=== PATIENT | male | born 1980 | race Caucasian/White ===

== ENCOUNTER → 2019-07-22 | Outpatient (CLI) | payer BC, OTHER ==
[~2019-07-22] MED LIST: AXIRON TOP; CLON0.2T PO; DIPH25CA58 PO; GABA800T5 PO; INSU3INS2 SUBCUT; LAMO25TA31 PO; METF10007 PO; METH-38 PO; NABU500T PO; OMEP40CA45 PO; ONDA4TAB12 PO; PROM25TA10 PO; QUET50TA79 PO; TRAZ150T49 PO; VENL75TA PO
--- NOTE | 2019-07-22 22:14 | PAIN ---
DATE OF SERVICE: 07/22/2019 INITIAL CONSULTATION FOR PAIN CLINIC CHIEF COMPLAINT: Low back and right greater than left lower extremity pain. HISTORY OF PRESENT ILLNESS: This is a 38-year-old male who presents with history of pain in the low back into the lower extremities, more on the right than the left, but present bilaterally, mostly in the posterior gluteus, posterior thigh, lateral thigh on the right and into the medial and lateral lower leg on the right but only into the thigh on the left. The patient reports this has been going on for about 8-1/2 months or so. No specific injury or action he is aware of. He has had this in the past several years ago, about 5-6 years ago, and did well after some interventional treatment at outside facility. The patient reports the pain is returning now over the past 8-1/2 months in the low back. He was wearing a boot on his left foot, he had an infection and wore this for several weeks. He feels that it "shifted" in his hips and back due to length difference with wearing a boot on his left foot. He has had back pain since that time. The boot has been off now for several weeks, but the pain is remaining. The patient reports it is worse with walking, standing, changing positions, sitting for more than 10-15 minutes. The patient reports it is a constant pain, it is becoming sharp, it is stabbing, throbbing, shooting in the lower extremities, again worse on the right than the left, radiating, aching, cramping and burning in the low back. The patient reports it awakens him from sleep about 2-3 times, can affect his bowel or bladder control, but no loss of continence. It does affect his ability to walk fairly significantly, especially when his right leg is aching and it fatigues more easily than the left leg, but they both have fatigue with walking. The patient has had physical therapy as early as June of this year, last month. He is still doing the stretching and strengthening exercises from that. Also, has chiropractic treatment is ongoing and exercises doing on his own. He has tried hydrocodone as well as nabumetone and zxbf-esr-joggvir Advil as well, which decreases the pain, but only by a moderate extent. The patient rates his disability rating from 0-10, 10 being the worst, is a 7 with family and home responsibility, sexual behavior and self-care, 9 with recreation and social activity, 10 with occupational activity and 2 with life support activities. The patient did have MRI scan of the lumbar spine showing mild degenerative disk disease at L3-L4, L4-L5 and L5-S1 with preserved disk height at L4-L5, but degeneration resulting in moderate right foraminal stenosis with decreased fat signal surrounding the right L4 nerve root. No direct nerve root displacement with mild narrowing of the lateral recess at L4-L5 and at L5-S1 with a subtle posterior central less than 5 mm protrusion at L5-S1 with focal disruption of the annulus as well as some flattening of subligamentous disk material in the location at L5-S1 also. PAST MEDICAL HISTORY: Significant for type 2 diabetes, obstructive sleep apnea, uses CPAP, gastroesophageal reflux, arthritis, depression, benign prostatic hypertrophy, psoriasis, also migraine headaches, and Klinefelter syndrome. PAST SURGICAL HISTORY: The patient reports surgeries include bilateral shoulder surgery for tendon repairs, right elbow surgery and wisdom teeth extraction. CURRENT MEDICATIONS: Include omeprazole, promethazine, ondansetron, lamotrigine, venlafaxine, gabapentin, metformin, Axiron, nabumetone, Soliqua, hydrocodone, methocarbamol, Benadryl, Omnicef. ALLERGIES: The patient has no known drug allergies. FAMILY HISTORY: Significant for Parkinson's disease, heart disease, suicides, heart attack, stroke. SOCIAL HISTORY: The patient drinks about 2 alcoholic drinks a month on average and generally very rare. Does not smoke, but is around secondhand smoke for many years. Does not use any illegal, illicit or recreational drugs. He is , lives with his spouse. Lives locally in [place], [place]. REVIEW OF SYSTEMS: The patient's review of systems is positive for those items mentioned in history of present illness. All systems reviewed and otherwise negative. It is complete, full and well documented on the patient's chart. PHYSICAL EXAMINATION: VITAL SIGNS: The patient's blood pressure is 134/93, pulse 91, respirations 18, temperature 97.9 degrees Fahrenheit, height is 6 feet 7 inches, weight 385 pounds. GENERAL: The patient is awake, alert, oriented, appropriate, very pleasant demeanor. HEENT: Shows normocephalic, atraumatic. Extraocular movements are intact and symmetrical. Oral cavity: Mucous membranes moist and pink. Dentition is intact. NECK: Shows anterior throat supple without palpable lymphadenopathy noted. Swallow reflex symmetrical. CHEST: Shows normal on inspection. Breath sounds are clear bilaterally. HEART: Shows S1, S2 clear. No murmurs auscultated. ABDOMEN: Soft, nontender, nondistended. No palpable organomegaly is noted. There is no rebound or guarding demonstrated. BACK: Shows spine grossly in the midline. Normal appearing thoracic kyphosis and some mild lumbar lordotic curvature flattening. Lumbar paraspinous muscle shows symmetrical on inspection, on palpation shows some moderate tenderness diffusely throughout the upper, middle and lower distribution of paraspinous muscles bilaterally as well as into the lower thoracic paraspinous musculature, but symmetrical without evidence of atrophy, hypertrophy, no trigger points, no radiation of pain, no tenderness over the spinous processes, sacrum or sacroiliac regions. No tenderness with rotation which is greater than 10 degrees right and left as well as extension 10 degrees, forward flexion 45 degrees without significant pain reported. EXTREMITIES: The patient's lower extremities show deep tendon reflexes at 2+ in the patellar, 1+ tendo-calcaneus tendons. Motor exam is strong with 5/5 dorsiflexion, extension, quadriceps and hamstring flexion symmetrical. Peripheral pulses are 1+ posterior tibia. No peripheral edema is noted. Lower extremities are warm and dry to touch, equal in color and appearance. Straight leg raise noted to be negative for reproduction of radicular symptoms on the left, but very mildly positive about 40 degrees to 45 degrees of the right leg raise with decreased pain with knee flexion on the right side. Gaenslen's and Juliano's maneuvers are grossly negative bilaterally. The patient is able to stand, stand on his toes without difficulty or loss of balance, walks with a normal appearing gait for short distance in the office today, not using any assistive devices to ambulate. SKIN: Shows warm and dry, good turgor. No edema. No sores, rashes or bruising throughout. Does have some psoriasis on the elbows bilaterally. IMPRESSION: 1. This is a 38-year-old male with 8-1/2 month history of increasing pain, low back, bilateral lower extremities in a radicular fashion, more on the right than the left, following a L4-L5 dermatomal distribution and consistent with L4-L5 radiculopathy bilaterally, but worse on the right. 2. MRI scan of lumbar spine as noted. 3. Arthritis. 4. Type 2 diabetes. 5. Psoriasis. PLAN: Options were discussed with the patient including conservative medical management, physical therapies, interventional techniques. He would like to pursue interventional techniques. He has done well with these in the past. He has been doing physical therapy since last month and still doing exercises on his own with only minimal decrease in pain. We discussed a lumbar epidural steroid injection using description as well as anatomical models to describe the procedure. The patient will wait for preauthorization with insurance provider. In the meantime, will keep doing the exercises at home and will continue to take his anti-inflammatories. The patient did ask for hydrocodone. We will give him 5 mg hydrocodone 20 tablets with instructions and side effects to be aware of as one-time prescription. The patient will follow up as scheduled for lumbar epidural steroid injection at L4-L5 level, translaminar approach. ESTHELA MAYBERRY MD DR: JOHANA/meena JOB#: [id number] / [id number]
== END | disposition home or self-care (01) ==
LOC: PNCL 12:46
PROVIDERS: ATTEND Anesthesiology
DX: M51.17 Intervertebral disc disorders with radiculopathy, lumbosacral region (principal); M48.07 Spinal stenosis, lumbosacral region; M19.90 Unspecified osteoarthritis, unspecified site; E11.9 Type 2 diabetes mellitus without complications; L40.9 Psoriasis, unspecified; K21.9 Gastro-esophageal reflux disease without esophagitis; F32.9 Major depressive disorder, single episode, unspecified
CPT/HCPCS: G0463

== ENCOUNTER → 2019-08-05 | Outpatient (CLI) | payer OTHER ==
[~2019-08-05] MED LIST changes: +IOHEXOL 180 MG/ML 10 ML VIAL. ONE; +methylPREDNISolone ACETATE 40 MG/ML VIAL. ONE; +methylPREDNISolone ACETATE 80 MG/ML VIAL. ONE
--- NOTE | 2019-08-05 21:03 | PAIN ---
DATE OF SERVICE: 08/05/2019 PROGRESS NOTE FOR PAIN CLINIC DIAGNOSES: Lumbar radiculopathy with lumbar degenerative disk disease. HISTORY OF PRESENT ILLNESS: The patient is a 38-year-old male who returns for followup status post initial evaluation and preauthorization for lumbar epidural steroid injection. The patient reports still significant pain in the low back into the bilateral lower extremities, right greater than left. The patient reports it is worse with walking, standing, changing positions, better with sitting or lying down, does awaken him from sleep, however, occasionally, but not every night. The patient reports it is a 9 on a scale of 10 at its worst, 8 on average, 6 at its least and is an 8 today. The patient reports no new motor or sensory deficits. He describes the pain as aching, sharp, tight, shooting, burning and stabbing in the low back and becoming more constant and severe, radiating to the lower extremities, again worse on the right side. PHYSICAL EXAMINATION: VITAL SIGNS: The patient's blood pressure is 138/92, pulse 83, respirations 16, temperature 97.7 degrees Fahrenheit, height is 6 feet 7 inches, weight is 386 pounds. GENERAL: The patient is awake, alert, oriented, appropriate, very pleasant demeanor. HEENT: Head shows normocephalic, atraumatic. Extraocular movements are intact and symmetrical. Oral cavity: Mucous membranes moist and pink. Dentition is intact. NECK: Shows anterior throat supple without palpable lymphadenopathy noted. Swallow reflex symmetrical. CHEST: Shows normal on inspection. Breath sounds are clear to auscultation bilaterally. HEART: Shows S1, S2 clear. No murmurs auscultated. ABDOMEN: Soft, nontender, nondistended. No palpable organomegaly is noted. No rebound or guarding demonstrated. BACK: Shows spine grossly in the midline. Normal appearing thoracic kyphosis and lumbar lordotic curvature slightly flattened. Lumbar paraspinous muscle shows symmetrical on inspection, with palpation shows some moderate tenderness diffusely bilaterally, but only diffusely without significant radiation. EXTREMITIES: The patient's lower extremities show deep tendon reflexes at 2+ in the patellar, 1+ tendo-calcaneus tendons. Motor exam is strong with 5/5 dorsiflexion, extension and quadriceps and hamstring at 5/5 and 4/5 bilaterally. Peripheral pulses are 1+ posterior tibia. No peripheral edema is noted. Options were discussed with the patient. The patient's old chart was reviewed as his current medication regimen updated. Current review of systems updated today as well. We will proceed with a lumbar epidural steroid injection today with fluoroscopic guidance. Risks were again discussed including, but not limited to bleeding, infection, possibility of epidural hematoma, subsequent neurological compromise, dural puncture, headaches, spinal cord and/or nerve damage, side effects of steroid medication and poor results regarding pain control. The patient understands and wished to proceed. The patient will return to clinic in approximately 2 weeks for followup. She was counseled on return appointment, activity level and side effects to be aware of. DIAGNOSIS: Lumbar radiculopathy with lumbar degenerative disk disease. PROCEDURE: Lumbar epidural steroid injection, translaminar approach L4-L5 level using C-arm fluoroscopic guidance under sterile prep and drape using local anesthetic. MEDICATION INJECTED: A total of 120 mg Depo-Medrol plus 10 mL of preservative-free normal saline and 2 mL of contrast. CONDITION AT DISCHARGE: Stable. The patient tolerated the procedure well, had no complications. ESTHELA MAYBERRY MD DR: JOHANA/meena JOB#: [id number] / [id number]
== END ==
LOC: PNCL 12:58
PROVIDERS: ATTEND Anesthesiology
DX: M51.16 Intervertebral disc disorders with radiculopathy, lumbar region (principal)
CPT/HCPCS: 62323; J1030; J1040; Q9965

== ENCOUNTER 2020-11-18 15:10 | Inpatient (IN) | payer OTHER ==
[~2020-11-18] VITALS: Ht 200.7 cm; Wt 168.3 kg
[~2020-11-18 15:10] MED LIST changes: -CHOL10004 PO; -DAPT350V IV; -DIPH25TA24 PO; -DOXY100C2 PO; -EMPA25TA PO; -FURO80TA3 PO; -GADOTERATE 7.5 MMOL/15ML VIAL. IVP ONE; -HYDR2TAB31 PO; -HYDR4TAB PO; -INSU100I27 SQ; -INSU100I39 SQ; -LACT1CAP19 PO; -LAMO200T6 PO; -METF750T39 PO; -ONDA8TAB15 PO; -PANT40TA77 PO; -PIPE3.3734 IV; -POTA20TA84 PO; -QUET50TA5 PO; -RIVA15TA PO; -TEMA30CA PO; -TEST200V3 IM; -VENL150C6 PO; -VENL50TA PO
[2020-11-18 15:30] VITALS: BP 129/72
--- NOTE | 2020-11-18 15:58 | PDOC1 ---
History and Physical Date of Admission Date of Admission DATE: 11/18/20 TIME: 15:57 Identification/Chief Complaint Chief Complaint ulcer to his left lateral foot approximately 3 weeks ago, now mri pos osteomyelitis// overlying soft tissue ulcer measuring 1.8 x 1.6 cm, extending to the bone.neuropathy of left foot, patient usually denies painful symptoms, now has a deep aching pain in foot History of Present Illness History of Present Illness worsening ulcer to his left lateral foot approximately 3 weeks ago, now mri pos osteomyelitis// overlying soft tissue ulcer measuring 1.8 x 1.6 cm, extending to the bone due to .neuropathy of left foot, patient usually denies painful symptoms now has a deep aching pain in foot MRI resulted 11/18 revealed osteomyelitis of the base of the fifth metatarsal Patient states approximately 1 week ago he began to notice malodorous drainage. Patient was admitted to [facility] and was treated for left lower extremity cellulitis with IV vancomycin. 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 , now unemployed plan admit IV ANTIBIOTICS BLOOD CULTURES /ID CONSULT Emperic iv antibiotics wound care consult home meds Arterial doppler both legs A1C ACCUCHECKS Past Medical History Past Medical History sleep apnea STATES he developed diabetes afer an episode of pancreatitis a few years ago Cardiovascular: HTN Pulmonary: No pertinent hx Endocrine: Diabetes Family History Family History: High Cholestrol, Hypertension Social History Smoke: No ALCOHOL: none Drugs: None Current Medications Current Medications Active Scripts Active Reported Clonidine Hcl 0.2 Mg Tablet 1 Tab PO QHS Trazodone Hcl 150 Mg Tablet 1 Tab PO QHS 30 Days Quetiapine Fumarate ER (Quetiapine Fumarate) 50 Mg Tab.er.24h 50 Mg PO HS Benadryl (Diphenhydramine Hcl) 25 Mg Capsule 1 Cap PO QHS 30 Days Robaxin-750 (Methocarbamol) 750 Mg Tablet 500 Mg PO QID Soliqua 100 Unit-33 Mcg/ml Pen (Insulin Glargine/Lixisenatide) 3 Ml Insuln.pen 20 Ml SUBCUT HS [axiron] 30 Mg TOP DAILY Nabumetone 500 Mg Tablet 1 Tab PO BID Metformin Hcl 1,000 Mg Tablet 1,000 Mg PO BIDWMEALS Gabapentin 800 Mg Tablet 800 Mg PO QID Venlafaxine Hcl 75 Mg Tablet 150 Mg PO DAILY Lamotrigine 25 Mg Tab.er.24 25 Mg PO TID Ondansetron Odt (Ondansetron) 4 Mg Tab.rapdis 4 Mg PO TID PRN Promethazine Hcl 25 Mg Tablet 1 Tab PO DAILY Omeprazole 40 Mg Capsule.dr 40 Mg PO BID Allergies Allergies: Coded Allergies: No Known Drug Allergies (Unverified , 11/18/20) ROS Review of System 14 pt ros otherwise neg General: YES: Chills, Fatigue PSYCHOLOGICAL ROS: No: Anxiety, Behavioral Disorder, Concentration difficultie, Decreased libido, Depression, Disorientation, Hallucinations, Hostility, Irritablity, Memory difficulties, Mood Swings, Obsessive thoughts, Physical abuse, Sexual abuse, Sleep disturbances, Suicidal ideation, Other Eyes: No Blurry vision, No Decreased vision, No Double vision, No Dry eyes, No Excessive tearing, No Eye Pain, No Itchy Eyes, No Loss of vision, No Photophobia, No Scotomata, No Uses contacts, No Uses glasses, No Other HEENT: No: Heacaches, Visual Changes, Hearing change, Nasal congestion, Nasal discharge, Oral lesions, Sinus pain, Sore Throat, Epistaxis, Sneezing, Snoring, Tinnitus, Vertigo, Vocal changes, Other ALLERGY AND IMMUNOLOGY: No: Hives, Insect Bite Sensitivity, Itchy/Watery Eyes, Nasal Congestion, Post Nasal Drip, Seasonal Allergies, Other Hematological and Lymphatic: No: Bleeding Problems, Blood Clots, Blood Transfusions, Brusing, Night Sweats, Pallor, Swollen Lymph Nodes, Other ENDOCRINE: No: Breast Changes, Galactorrhea, Hair Pattern Changes, Hot Flashes, Malaise/lethargy, Mood Swings, Palpitations, Polydipsia/polyuria, Skin Changes, Temperature Intolerance, Unexpected Weight Changes, Other Breast: No New/Changing Breast Lumps, No Nipple changes, No Nipple discharge, No Other Respiratory: No: Cough, Hemoptysis, Orthopnea, Pleuritic Pain, Shortness of breath, SOB with excertion, Sputum Changes, Stridor, Tachypnea, Wheezing, Other Cardiovascular: No Chest Pain, No Palpitations, No Orthopnea, No Paroxysmal Noc. Dyspnea, No Edema, No Lt Headedness, No Other Gastrointestinal: No Nausea, No Vomiting, No Abdominal Pain, No Diarrhea, No Constipation, No Melena, No Hematochezia, No Other Genitourinary: No Dysuria, No Frequency, No Incontinence, No Hematuria, No Retention, No Discharge, No Urgency, No Pain, No Flank Pain, No Other, No , No , No , No , No , No , No Musculoskeletal: Yes Gait Disturbance, Yes Joint Stiffness, Yes Joint Swelling, Yes Pain In: (foot) Neurological: No Behavorial Changes, No Bowel/Bladder ControlChng, No Co nfusion, No Dizziness, No Gait Disturbance, No Headaches, No Impaired Coord/balance, No Memory Loss, No Numbness/Tingling, No Seizures, No Speech Problems, No Tremors, No Visual Changes, No Weakness, No Other Skin: Yes Skin Lesion Changes; No Dry Skin, No Eczema, No Hair Changes, No Lumps, No Mole Changes, No Mottling, No Nail Changes, No Pruritus, No Rash, No Other, No Acne Physical Exam Physical Exam left lateral foot presents with a 1.8 x 1.4 x 0.9 cm open ulceration. Wound bed is 100% slough. There is undermining from 11-2 with a max of 1.1 cm. General: Alert, Oriented X3, Cooperative, No acute distress HEENT: PERRLA Lungs: Clear to auscultation, Normal air movement Heart: S1S2, RRR, no thrills Breasts: Not examined Abdomen: Normal bowel sounds, Soft Rectal Exam: not examined PELVIC: Examination not indicated Extremities: No cyanosis Neuro: Normal speech, Cranial nerves 3-12 NL Psych/Mental Status: Mental status NL, Mood NL Images Images Signed PATIENT: CHRISTY WILLIS ACCOUNT: [id number] : 1980 LOCATION: MRI AGE: 40 SEX: M EXAM STATUS: REG CLI ORD. PHYSICIAN: RIVERA MACHADO DO REASON: NON HEALING DIABETIC ULCER ON LEFT FOOT PROXIMAL 5TH METATARSAL PROCEDURE: LOWER EXT NON JOINT WO/W LT EXAMINATION: MRI LEFT LOWER EXTREMITY W/WO INDICATIONS: Nonhealing diabetic ulcer on left foot, proximal fifth metatarsal.. TECHNIQUE: Multiplanar multisequence MRI of left forefoot performed before and after administration of 30 mL clariscan contrast. COMPARISON: None. FINDINGS: There is confluent low T1 marrow signal and edema at the lateral base of the fifth metatarsal with mild periosteal reaction, consistent with acute osteomyelitis. There is reactive marrow edema throughout the rest of the fifth metatarsal shaft without T1 signal abnormality. There is an overlying soft tissue ulcer measuring 1.8 x 1.6 cm, extending to the bone. There is subcutaneo us edema along the dorsum of the foot. No drainable fluid collection. Mild diffuse muscular edema. Marrow signal elsewhere is normal. Articular cartilage is intact. The lateral collateral ligamentous complex is intact. There is probable old sprain of the deep deltoid ligament. Superficial deltoid ligament is intact. Probable small longitudinal split tear of the Proteus brevis tendon. Remaining tendons are intact. There is a small amount of fluid along the peroneal tendons and posterior tibial tendon. IMPRESSION: Acute osteomyelitis of the base of the fifth metatarsal with overlying soft tissue ulcer. Electronically signed by: Judy Ariza MD (11/18/2020 3:18 PM) [id number] DICTATED and SIGNED BY: JUDY ARIZA MD DATE: 11/18/20 [id number] VTE Prophylaxis Ordered VTE Prophylaxis Devices: Contraindicated VTE Pharmacological Prophylaxi: Yes Assessment/Plan Assessment/Plan IMPRESSION: Acute osteomyelitis of the base of the fifth metatarsal with overlying soft tissue ulcer. diabetes PVD neuropathy of left foot, denies painful symptoms hx Depression, anxiety Obesity PLAN admit IV ANTIBIOTICS BLOOD CULTURES ID CONSULT Emperic iv antibiotics wound care consult home meds Arterial doppler both legs A1C ACCUCHECKS D/W RN estimate LOS > 72 HRS 76 min pt exam, chart review, > 50% of time spent with exam, chart review, pt care coordination Justifications for Admission Other Justification EMMA MCKEON MD Nov 18, 2020 15:58
--- NOTE | 2020-11-18 16:01 | PDOC2 ---
Chief Complaint: Chief Complaint: Left lateral foot diabetic foot ulcer, positive for osteomyelitis on MRI. Allergies: Allergies: Allergies Coded Allergies Type Severity Reaction Last Updated Verified No Known Drug Allergies 11/18/20 No Medications: Home Meds Reported Medications Clonidine Hcl (CLONIDINE HCL) 0.2 Mg Tablet, 1 TAB PO QHS for unk, #30 TAB 1 Refill 07/22/19 Trazodone Hcl (TRAZODONE HCL) 150 Mg Tablet, 1 TAB PO QHS for unk for 30 Days, #30 TAB 0 Refills 07/22/19 Quetiapine Fumarate (Quetiapine Fumarate ER) 50 Mg Tab.er.24h, 50 MG PO HS for unk, TAB.SR 07/22/19 Diphenhydramine Hcl (BENADRYL) 25 Mg Capsule, 1 CAP PO QHS for migraines" for 30 Days, #30 CAP 0 Refills 07/22/19 Methocarbamol (ROBAXIN-750) 750 Mg Tablet, 500 MG PO QID for spasms, TAB 07/22/19 Insulin Glargine/Lixisenatide (Soliqua 100 Unit-33 Mcg/ml Pen) 3 Ml Insuln.pen, 20 ML SUBCUT HS for diabetes, EACH 07/22/19 [axiron] No Conflict Check, 30 MG TOP DAILY 07/22/19 Nabumetone (NABUMETONE) 500 Mg Tablet, 1 TAB PO BID for unk, #60 TAB 1 Refill 07/22/19 Metformin Hcl (METFORMIN HCL) 1,000 Mg Tablet, 1000 MG PO BIDWMEALS for diabe carlos, TAB 07/22/19 Gabapentin (GABAPENTIN) 800 Mg Tablet, 800 MG PO QID for NEUROGENIC PAIN, TAB 07/22/19 Venlafaxine Hcl (VENLAFAXINE HCL) 75 Mg Tablet, 150 MG PO DAILY for depression, TAB 07/22/19 Lamotrigine (LAMOTRIGINE) 25 Mg Tab.er.24, 25 MG PO TID for depression, TAB.SR 07/22/19 Ondansetron (ONDANSETRON ODT) 4 Mg Tab.rapdis, 4 MG PO TID PRN for NAUSEA/VOMITING, TAB 07/22/19 Promethazine Hcl (PROMETHAZINE HCL) 25 Mg Tablet, 1 TAB PO DAILY for unk, #20 TAB 07/22/19 Omeprazole (OMEPRAZOLE) 40 Mg Capsule., 40 MG PO BID for gerd, CAP 07/22/19 PCP: PCP: Dr. Daniels Pain: Pain Location: Other (Patient with diabetic neuropathy and denies painful symptoms of the affected area.) Date of Onset Patient well-known to the wound care center for previous diabetic foot ulcers. Patient reports he first noticed the ulcer to his left lateral foot approximately 3 weeks ago. Patient states that the wound began as a thickened callus that blistered and then open. Patient states approximately 1 week ago he began to notice malodorous drainage. Patient was admitted to [facility] and was treated for left lower extremity cellulitis with IV vancomycin. This nurse practitioner saw the patient on 11/12/20 at [facility]. Wound to the lateral foot presented with 100% boggy eschar that had from the edges. Following patient consent, wound was debrided at bedside. Post debridement wound was palpable to bone. Recommended transfer to [facility] at that time for MRI and ID consultation. [facility] Bactrim and doxycycline and was instructed to follow-up at our clinic. Patient was seen on 11/16 and an MRI was ordered. MRI resulted 11/18 revealed osteomyelitis of the base of the fifth metatarsal. Dr. Daniels excepted admission and care at [facility]. PMH Type 2 diabetes, morbid obesity, testosterone deficiency, sleep apnea PSH Prior to hospitalization, patient lived at home with his mother. Patient denies history of tobacco use, alcohol use or illicit drug use. Patient ambulatory without the use of assistive devices and is independent with ADLs. Review of Systems: Due to neuropathy of left foot, patient denies painful symptoms at this time. Patient states that he continues to have a good appetite with normal output. Patient denies fever or flulike symptoms. Patient denies cough or shortness of breath. Patient states that he has been sleeping good without mood changes or headaches. Physical Exam Patient awake and alert 40-year-old male in no apparent distress. Vital signs are stable. Patient is afebrile. Respirations are even and unlabored. Patient is on room air not requiring supplemental oxygen. Abdomen is soft, nondistended, nontender and obese. Bilateral lower extremities with mild lymphedema with 1+ pitting edema. The left lateral foot presents with a 1.8 x 1.4 x 0.9 cm open ulceration. Wound bed is 100% slough. There is undermining from 11-2 with a max of 1.1 cm. Surrounding tissue with erythema and warmth. Moderate serosanguineous drainage. No odor following cleansing. A/P Left lateral foot DFU with osteomyelitis of the fifth metatarsal -Arterial Doppler to ensure adequate blood flow to affected area -ID consult -Ortho consult for possible surgical debridement -Recommend nonweightbearing status to affected foot -Cleanse and pat dry. Apply iodine soaked gauze and cover with foam adhesive. Change twice daily or as needed if dressing loose or saturated. EKTA LEDESMA HOT SEALING MACHINE OPERATOR Nov 18, 2020 16:01
[2020-11-18] MEDS ORDERED: guaiFENesin ORAL 200 MG/10 ML LIQUID. PO PRN (16:15)
[2020-11-18] MEDS ORDERED: cloNIDine HCL 0.1 MG TABLET PO PRN (16:15)
[2020-11-18] MEDS ORDERED: VANCOMYCIN PER PHARMACY MC PRN (16:15)
[2020-11-18] MEDS ORDERED: SODIUM PHOSPHATES 19/7GM 133 ML ENEMA. PR PRN (16:15)
[2020-11-18] MEDS ORDERED: VANCOMYCIN 1 GM in IV DEXTROSE 5% 250 ML IV ONE (16:15)
[2020-11-18] MEDS ORDERED: MAG HYDROX/ALUMINUM HYD/SIMETH 30 ML ORAL.SUSP PO PRN (16:15)
[2020-11-18] MEDS ORDERED: LORazepam 0.5 MG TABLET PO PRN (16:15)
[2020-11-18] MEDS ORDERED: 0.9 % SODIUM CHLORIDE 10 ML DISP.SYRIN. IV PRN (16:15)
[2020-11-18] MEDS ORDERED: ACETAMINOPHEN 325 MG TABLET. PO PRN (16:15)
[2020-11-18] MEDS ORDERED: diphenhydrAMINE 50 MG/ML VIAL IVP PRN (16:15)
[2020-11-18] MEDS ORDERED: ZOLPIDEM 5 MG TABLET. PO PRN (16:15)
[2020-11-18] MEDS ORDERED: IPRATRPIUM/ALBUTEROL 0.5/2.5MG 3 ML NEBU. NEB SCH (16:15)
[2020-11-18] MEDS ORDERED: ONDANSETRON PF 4 MG/2 ML VIAL. IV PRN (16:15)
[2020-11-18] MEDS ORDERED: DOCUSATE SODIUM 100 MG CAPSULE. PO PRN (16:15)
--- NOTE | 2020-11-18 16:16 | NUR ---
Wound Care: Patient seen in clinic today prior to admission. Patient has Left DFU. Patient had MRI of the left foot prior to his appointment at the wound clinic. Due to the results of his MRI which was positive for osteo. Patient was admitted to the hospital per EVERETT Ziegler. Dr. Daniels was notified and agreeable to admission as well. Wound was cleansed, assessed, measured, and pictured. Wound redressed with Betadine soaked gauze, covered with ABD pad, and kerlix. Change daily until further orders. Patient will most likely have surgery. Consults for ortho and ID per Karlie. See progress note. Patient transported to the ER for admission. Pictures and instructions sent with patient. Wound care will continue to check chart and follow this patient's POC.
[2020-11-18 16:18] LABS: BASO # 0.1 x10^3/uL (0.0-0.2); BASO % 1 % (0-3); EOS # 1.1 x10^3/uL (0.0-0.7); EOS % 12 % (0-3); HEMATOCRIT 38.7 % (39.0-53.0); HEMOGLOBIN 12.9 g/dL (13.0-17.5); LYMPH # 2.7 x10^3/uL (1.0-4.8); LYMPH % 29 % (24-48); MEAN CORPUSCULAR HEMOGLOBIN 29 pg (25-35); MEAN CORPUSCULAR HGB CONC 33 g/dL (31-37); MEAN CORPUSCULAR VOLUME 88 fL (79-100); MONO # 0.6 x10^3/uL (0.0-1.1); MONO % 6 % (0-9); NEUT # 4.8 x10^3/uL (1.8-7.7); NEUT % 52 % (31-73); PLATELET COUNT 361 x10^3/uL (140-400); RED CELL DISTRIBUTION WIDTH 14.2 % (11.5-14.5); WHITE BLOOD COUNT 9.2 x10^3/uL (4.0-11.0)
[2020-11-18 16:43] LABS: ALBUMIN 3.3 g/dL (3.4-5.0); ALBUMIN/GLOBULIN RATIO 0.8 (1.0-1.7); CALCIUM 9.2 mg/dL (8.5-10.1); CREATININE 1.6 mg/dL (0.7-1.3); GFR 47.6; POTASSIUM 4.4 mmol/L (3.5-5.1); TOTAL BILIRUBIN 0.2 mg/dL (0.2-1.0); TOTAL PROTEIN 7.5 g/dL (6.4-8.2)
[2020-11-18] MEDS ORDERED: ONDANSETRON ODT 4 MG TAB.RAPDIS. PO PRN (16:45)
[2020-11-18] MEDS ORDERED: DEXTROSE 50% 25 GM / 50ML DISP.SYRIN. IV PRN (16:45)
[2020-11-18 16:54] LABS: % BANDS 5 % (0-9); % EOS 11 % (0-5); % LYMPHS 34 % (24-48); % MONOS 5 % (0-10); % SEGS 45 % (35-66); PLT ESTIMATE ADEQUATE (ADEQUATE)
[2020-11-18] MEDS: GABAPENTIN 400 MG CAPSULE. PO SCH ×2 (17:00→21:06)
[2020-11-18] MEDS: METHOCARBAMOL 500 MG TABLET PO SCH ×2 (17:00→21:00)
[2020-11-18] MEDS ORDERED: VANCOMYCIN 2 GM in IV NORMAL SALINE 500ML BAG 500 ML IV ONE (17:00)
[2020-11-18] MEDS: INSULIN LISPRO 300 UNITS/3 ML VIAL. SQ SCH (17:00)
[2020-11-18] MEDS: metFORMIN 500 MG TABLET PO SCH (17:00)
[2020-11-18] MEDS ORDERED: HYDROmorphone 2 MG/ML VIAL IVP PRN (17:15)
--- NOTE | 2020-11-18 17:43 | RAD ---
Study: US DPLX ARTR EXTREM LOWER BILAT Indication: Peripheral vascular disease. Diabetic ulcer with osteomyelitis. Comparison: None. Technique/Findings: Duplex sonographic assessment of the right and left lower extremity arteries. No dense calcified or noncalcified plaque seen throughout the lower extremities. Predominantly tripha sic and biphasic waveforms maintained throughout both lower extremities with the exception of a monop hasic waveform within the left DPA. Similar peak systolic velocity values obtained at each segment co mparing the right and left lower extremities with the exception of increased velocity within the left distal posterior tibial artery of 146 cm/s compared to 90 cm/s on the right and left DPA of 129 cm/s compared to 41 cm/s on the right. Right lower extremity: LEAD EMBEDDED SOFTWARE ENGINEER: 126 cm/s DFA: 57 cm/s Proximal SFA: 124 cm/s Mid SFA: 104 cm/s Distal SFA: 101 cm/s Popliteal artery: 61 cm/s Proximal APPRENTICE PLUMBER: 36 cm/s Distal APPRENTICE PLUMBER: 97 cm/s Peroneal artery: 60 cm/s Anterior tibial artery: 46 cm/s DPA: 41 cm/s Left lower extremity: LEAD EMBEDDED SOFTWARE ENGINEER: 138 cm/s DFA: 75 cm/s Proximal SFA: 126 cm/s Mid SFA: 117 cm/s Distal SFA: 117 cm/s Popliteal artery: 73 cm/s Proximal APPRENTICE PLUMBER: 41 cm/s Distal APPRENTICE PLUMBER: 146 cm/s Peroneal artery: 55 cm/s Anterior tibial artery: 73 cm/s DPA: 129 cm/s Impression: 1. Monophasic waveform and elevated peak systolic velocity within the left dorsalis pedis measuring 1 29 cm/s compared to 41 cm/s on the right suggesting a stenosis in this region. 2. Mild stenosis at the distal left posterior tibial artery. Electronically signed by: CASTRO VELA MD (11/18/2020 5:40 PM) [facility]
[2020-11-18] MEDS: IV NORMAL SALINE 1000ML BAG 1,000 ML IV SCH (19:04)
[2020-11-18] MEDS: DAPTOMYCIN IV SCH (19:05)
[2020-11-18] MEDS: NORMAL SALINE IV SCH (19:05)
[2020-11-18] MEDS ORDERED: ALBUTEROL SULFATE 2.5 MG/3 ML NEBU. NEB PRN (20:00)
[2020-11-18] MEDS ORDERED: C.DIFF MED SCREEN BY RX. MC ONE (20:00)
[2020-11-18] MEDS: PIPERACILLIN/TAZOBACTAM 3.375 GM in IV NORMAL SALINE 50ML 50 ML IV SCH (20:09)
[2020-11-18 20:35] VITALS: BP 133/76
[2020-11-18] MEDS ORDERED: INSU100I27 SQ (20:53)
[2020-11-18] MEDS ORDERED: DOXY100C2 PO (20:53)
[2020-11-18] MEDS ORDERED: HYDR4TAB PO (20:53)
[2020-11-18] MEDS ORDERED: EMPA25TA PO (20:53)
[2020-11-18] MEDS ORDERED: INSU100I39 SQ (20:53)
[2020-11-18] MEDS ORDERED: METF750T39 PO (20:53)
[2020-11-18] MEDS ORDERED: ONDA8TAB15 PO (20:53)
[2020-11-18] MEDS ORDERED: TEMA30CA PO (20:53)
[2020-11-18] MEDS ORDERED: POTA20TA84 PO (20:53)
[2020-11-18] MEDS ORDERED: FURO80TA3 PO (20:53)
[2020-11-18] MEDS ORDERED: VENL150C6 PO (20:53)
[2020-11-18] MEDS ORDERED: LAMO200T6 PO (20:53)
[2020-11-18] MEDS ORDERED: TEST200V3 IM (20:59)
[2020-11-18] MEDS: traZODone 50 MG TABLET. PO SCH (21:00)
[2020-11-18] MEDS: diphenhydrAMINE HCL 25 MG CAPSULE PO SCH (21:00)
[2020-11-18] MEDS ORDERED: ENOXAPARIN 40 MG/0.4 ML SYRINGE. SQ SCH (21:00)
[2020-11-18] MEDS ORDERED: QUEtiapine 50 MG TAB.ER.24H. PO SCH (21:00)
[2020-11-18] MEDS: cloNIDine HCL 0.2 MG TABLET PO SCH (21:00)
[2020-11-18] MEDS: lamoTRIgine 25 MG TABLET. PO SCH (21:06)
[2020-11-18] MEDS: FAMOTIDINE 20 MG TABLET. PO SCH (21:06)
[2020-11-18] MEDS: LACTOBACILLUS RHAMNOSUS GG 1 CAPSULE. PO SCH (21:06)
--- NOTE | 2020-11-18 21:06 | NUR ---
Scheduled Lovenox non-administered d/t possible surgery on 11/19/20.
[2020-11-18] MEDS: INSULIN GLARGINE SYRINGE. SQ SCH (21:15)
[2020-11-18 23:41] VITALS: BP 123/59
[2020-11-19] VITALS (14 sets, daily range): BP systolic 95–130; BP diastolic 31–71
[2020-11-19] MEDS: PIPERACILLIN/TAZOBACTAM 3.375 GM in IV NORMAL SALINE 50ML 50 ML IV SCH ×5 (00:06→23:33)
[2020-11-19 01:14] LABS: HEMOGLOBIN A1C 10.6 % (4.8-5.6)
[2020-11-19] MEDS: IV NORMAL SALINE 1000ML BAG 1,000 ML IV SCH ×3 (04:49→22:46)
[2020-11-19 06:56] LABS: BASO # 0.1 x10^3/uL (0.0-0.2); BASO % 1 % (0-3); EOS # 0.9 x10^3/uL (0.0-0.7); EOS % 11 % (0-3); HEMATOCRIT 36.4 % (39.0-53.0); LYMPH % 37 % (24-48); MEAN CORPUSCULAR HEMOGLOBIN 29 pg (25-35); MEAN CORPUSCULAR HGB CONC 33 g/dL (31-37); MEAN CORPUSCULAR VOLUME 88 fL (79-100); MONO # 0.5 x10^3/uL (0.0-1.1); MONO % 6 % (0-9); NEUT # 3.9 x10^3/uL (1.8-7.7); NEUT % 46 % (31-73); PLATELET COUNT 319 x10^3/uL (140-400); RED BLOOD COUNT 4.13 x10^6/uL (4.30-5.70); RED CELL DISTRIBUTION WIDTH 14.5 % (11.5-14.5); WHITE BLOOD COUNT 8.4 x10^3/uL (4.0-11.0)
[2020-11-19] MEDS ORDERED: PANTOPRAZOLE 40 MG TABLET.DR. PO SCH (07:30)
[2020-11-19] MEDS: metFORMIN 500 MG TABLET PO SCH (08:00)
[2020-11-19] MEDS: INSULIN LISPRO 300 UNITS/3 ML VIAL. SQ SCH ×5 (08:00→17:00)
[2020-11-19] MEDS: METHOCARBAMOL 500 MG TABLET PO SCH (08:02)
[2020-11-19] MEDS: MELOXICAM 7.5 MG TABLET PO SCH (08:02)
[2020-11-19 08:07] LABS: ALBUMIN/GLOBULIN RATIO 0.8 (1.0-1.7); C-REACTIVE PROTEIN 12.3 mg/L (0-3.3); CALCIUM 8.8 mg/dL (8.5-10.1); CREATININE 1.6 mg/dL (0.7-1.3); GFR 47.6; POTASSIUM 4.3 mmol/L (3.5-5.1); TOTAL BILIRUBIN 0.2 mg/dL (0.2-1.0); TOTAL PROTEIN 6.8 g/dL (6.4-8.2)
[2020-11-19] MEDS: FAMOTIDINE 20 MG TABLET. PO SCH ×2 (08:55→20:17)
[2020-11-19] MEDS: GABAPENTIN 400 MG CAPSULE. PO SCH ×4 (08:56→20:17)
[2020-11-19] MEDS: LACTOBACILLUS RHAMNOSUS GG 1 CAPSULE. PO SCH ×2 (08:56→20:17)
[2020-11-19] MEDS ORDERED: VENLAFAXINE XR 37.5 MG CAP.ER.24H. PO SCH (09:00)
[2020-11-19] MEDS ORDERED: PROMETHAZINE 12.5 MG TABLET. PO SCH (09:00)
[2020-11-19] MEDS: lamoTRIgine 25 MG TABLET. PO SCH (09:00)
[2020-11-19] MEDS ORDERED: IV RINGERS,LACTATED 1000ML 1,000 ML IV SCH (09:45)
[2020-11-19] MEDS ORDERED: HYDROmorphone 2 MG/ML VIAL IVP PRN (09:45)
[2020-11-19] MEDS ORDERED: fentaNYL PF VIAL 100 MCG/2 ML VIAL IVP PRN (09:45)
[2020-11-19] MEDS ORDERED: MORPHINE SULFATE 2 MG/ML VIAL. IVP PRN (09:45)
[2020-11-19] MEDS ORDERED: PROCHLORPERAZINE 10 MG/2 ML VIAL. IVP PRN (09:45)
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
--- NOTE | 2020-11-19 10:32 | NUR ---
SW following. Discussed with RN, pt from home, room air, NPO. Pt having vascular surgery today. Per RN pt sometimes helps care for his mother. SW awaiting further plan of care to determine discharge needs. SW will continue to follow.
--- NOTE | 2020-11-19 11:56 | PDOC ---
[employer] PROGRESS NOTE Date of Service DOS: DATE: 11/19/20 TIME: 11:54 Chief Complaint Chief Complaint Assessment/Plan IMPRESSION: Acute osteomyelitis of the base of the fifth metatarsal with overlying soft tissue ulcer. diabetes PVD neuropathy of left foot, denies painful symptoms hx Depression, anxiety Obesity PLAN Vascular surgery consultappreciate recommendations - Recommend excisional debridement including the affected bone IV ANTIBIOTICS BLOOD CULTURES ID CONSULT Emperic iv antibiotics wound care consult home meds Arterial doppler both legs A1C ACCUCHECKS History of Present Illness History of Present Illness 11/19/2020 No acute events overnight. No concerns from nursing. Patient seen and examined bedside. On-call to the OR today for with vascular surgery. Patient's chart, labs, images were reviewed and discussed with RN worsening ulcer to his left lateral foot approximately 3 weeks ago, now mri pos osteomyelitis// overlying soft tissue ulcer measuring 1.8 x 1.6 cm, extending to the bone due to .neuropathy of left foot, patient usually denies painful symptoms now has a deep aching pain in foot MRI resulted 11/18 revealed osteomyelitis of the base of the fifth metatarsal Patient states approximately 1 week ago he began to notice malodorous drainage. Patient was admitted to [facility] and was treated for left lower extremity cellulitis with IV vancomycin. 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 , now unemployed plan admit IV ANTIBIOTICS BLOOD CULTURES /ID CONSULT Emperic iv antibiotics wound care consult home meds Arterial doppler both legs A1C ACCUCHECKS Vitals/I&O Vitals/I&O: Vital Signs Date Time Temp Pulse Resp B/P (MAP) Pulse Ox O2 Delivery O2 Flow Rate FiO2 11/19/20 11:00 98.2 71 18 109/60 (76) 96 Room Air 98.2 I & O 11/18/20 11/18/20 11/19/20 15:00 23:00 07:00 Intake Total 1040 ml 390 ml Balance 1040 ml 390 ml Physical Exam General: Alert, Oriented X3, Cooperative, No acute distress Heart: Regular rate Abdomen: Soft, No tenderness Extremities: No cyanosis, Normal pulses, Other (Mild peripheral edema. Palpable pedal pulses bilaterally. ) Skin: Other (Left lateral foot penetrating ulcer with slough tissue at base and hypertrophied callous edges, probes to bone. No drainage or surrounding erythema. ) Labs Labs: Laboratory Tests Test 11/18/20 16:02 11/18/20 16:10 11/18/20 16:42 11/18/20 20:59 Hemoglobin A1c 10.6 % (4.8-5.6) White Blood Count 9.2 x10^3/uL (4.0-11.0) Red Blood Count 4.40 x10^6/uL (4.30-5.70) Hemoglobin 12.9 g/dL (13.0-17.5) Hematocrit 38.7 % (39.0-53.0) Mean Corpuscular Volume 88 fL (79-100) Mean Corpuscular Hemoglobin 29 pg (25-35) Mean Corpuscular Hemoglobin Concent 33 g/dL (31-37) Red Cell Distribution Width 14.2 % (11.5-14.5) Platelet Count 361 x10^3/uL (140-400) Neutrophils (%) (Auto) 52 % (31-73) Lymphocytes (%) (Auto) 29 % (24-48) Monocytes (%) (Auto) 6 % (0-9) Eosinophils (%) (Auto) 12 % (0-3) Basophils (%) (Auto) 1 % (0-3) Neutrophils # (Auto) 4.8 x10^3/uL (1.8-7.7) Lymphocytes # (Auto) 2.7 x10^3/uL (1.0-4.8) Monocytes # (Auto) 0.6 x10^3/uL (0.0-1.1) Eosinophils # (Auto) 1.1 x10^3/uL (0.0-0.7) Basophils # (Auto) 0.1 x10^3/uL (0.0-0.2) Segmented Neutrophils % 45 % (35-66) Band Neutrophils % 5 % (0-9) Lymphocytes % 34 % (24-48) Monocytes % 5 % (0-10) Eosinophils % 11 % (0-5) Platelet Estimate Adequate (ADEQUATE) Sodium Level 141 mmol/L (136-145) Potassium Level 4.4 mmol/L (3.5-5.1) Chloride Level 106 mmol/L (98-107) Carbon Dioxide Level 26 mmol/L (21-32) Anion Gap 9 (6-14) Blood Urea Nitrogen 21 mg/dL (8-26) Creatinine 1.6 mg/dL (0.7-1.3) Estimated GFR (Cockcroft-Gault) 47.6 BUN/Creatinine Ratio 13 (6-20) Glucose Level 136 mg/dL (70-99) Calcium Level 9.2 mg/dL (8.5-10.1) Total Bilirubin 0.2 mg/dL (0.2-1.0) Aspartate Amino Transf (AST/SGOT) 34 U/L (15-37) Alanine Aminotransferase (ALT/SGPT) 36 U/L (16-63) Alkaline Phosphatase 107 U/L (46-116) Total Protein 7.5 g/dL (6.4-8.2) Albumin 3.3 g/dL (3.4-5.0) Albumin/Globulin Ratio 0.8 (1.0-1.7) Glucose (Fingerstick) 141 mg/dL (70-99) 140 mg/dL (70-99) Test 11/19/20 05:45 11/19/20 07:42 11/19/20 11:12 White Blood Count 8.4 x10^3/uL (4.0-11.0) Red Blood Count 4.13 x10^6/uL (4.30-5.70) Hemoglobin 12.0 g/dL (13.0-17.5) Hematocrit 36.4 % (39.0-53.0) Mean Corpuscular Volume 88 fL (79-100) Mean Corpuscular Hemoglobin 29 pg (25-35) Mean Corpuscular Hemoglobin Concent 33 g/dL (31-37) Red Cell Distribution Width 14.5 % (11.5-14.5) Platelet Count 319 x10^3/uL (140-400) Neutrophils (%) (Auto) 46 % (31-73) Lymphocytes (%) (Auto) 37 % (24-48) Monocytes (%) (Auto) 6 % (0-9) Eosinophils (%) (Auto) 11 % (0-3) Basophils (%) (Auto) 1 % (0-3) Neutrophils # (Auto) 3.9 x10^3/uL (1.8-7.7) Lymphocytes # (Auto) 3.0 x10^3/uL (1.0-4.8) Monocytes # (Auto) 0.5 x10^3/uL (0.0-1.1) Eosinophils # (Auto) 0.9 x10^3/uL (0.0-0.7) Basophils # (Auto) 0.1 x10^3/uL (0.0-0.2) Erythrocyte Sedimentation Rate 42 (0-15) Sodium Level 142 mmol/L (136-145) Potassium Level 4.3 mmol/L (3.5-5.1) Chloride Level 108 mmol/L (98-107) Carbon Dioxide Level 28 mmol/L (21-32) Anion Gap 6 (6-14) Blood Urea Nitrogen 22 mg/dL (8-26) Creatinine 1.6 mg/dL (0.7-1.3) Estimated GFR (Cockcroft-Gault) 47.6 BUN/Creatinine Ratio 14 (6-20) Glucose Level 130 mg/dL (70-99) Calcium Level 8.8 mg/dL (8.5-10.1) Total Bilirubin 0.2 mg/dL (0.2-1.0) Aspartate Amino Transf (AST/SGOT) 32 U/L (15-37) Alanine Aminotransferase (ALT/SGPT) 32 U/L (16-63) Alkaline Phosphatase 99 U/L (46-116) C-Reactive Protein, Quantitative 12.3 mg/L (0-3.3) Total Protein 6.8 g/dL (6.4-8.2) Albumin 3.0 g/dL (3.4-5.0) Albumin/Globulin Ratio 0.8 (1.0-1.7) Glucose (Fingerstick) 135 mg/dL (70-99) 146 mg/dL (70-99) Comment Review of Relevant I have reviewed the following items martell (where applicable) has been applied. Medications: Current Medications Medications (Trade) Dose Ordered Sig/Radha Route PRN Reason Start Time Stop Time Status Last Admin Dose Admin Sodium Chloride 1,000 ml @ 100 mls/hr Q10H IV 11/18/20 17:00 11/19/20 04:49 Ondansetron HCl (Zofran) 4 mg PRN Q4HRS PRN IV NAUSEA/VOMITING 11/18/20 16:15 11/18/20 21:06 Piperacillin Sod/ Tazobactam Sod 3.375 gm/Sodium Chloride 50 ml @ 100 mls/hr Q6HRS IV 11/18/20 18:00 11/19/20 05:35 Quetiapine Fumarate (SEROquel XR) 50 mg HS PO 11/18/20 21:00 11/18/20 21:07 Gabapentin (Neurontin) 800 mg QID PO 11/18/20 17:00 11/19/20 08:56 Insulin Glargine (Lantus Syringe) 20 unit QHS SQ 11/18/20 21:00 11/18/20 21:15 Lamotrigine (LaMICtal) 25 mg TID PO 11/18/20 21:00 11/18/20 21:06 Hydromorphone HCl (Dilaudid) 0.7 mg PRN Q3HRS PRN IVP PAIN 11/18/20 17:15 11/18/20 20:23 DC 11/18/20 17:37 Daptomycin 740 mg/ Sodium Chloride 50 ml @ 100 mls/hr Q24H IV 11/18/20 18:00 11/18/20 19:05 Famotidine (Pepcid) 20 mg BID PO 11/18/20 21:00 11/19/20 08:55 Lactobacillus Rhamnosus (Culturelle) 1 cap BID PO 11/18/20 21:00 11/19/20 08:56 Hydromorphone HCl (Dilaudid) 4 mg PRN Q6HRS PRN PO PAIN 11/18/20 20:30 11/19/20 09:00 Justifications for Admission Other Justification osteomyelitis foot RICHARD FITZGERALD MD Nov 19, 2020 11:56
[2020-11-19] MEDS ORDERED: silver sulfADIAZINE 1% CREAM 25GM TUBE. TP ONE (12:53)
[2020-11-19] MEDS ORDERED: LIDOCAINE 1% Multi-Dose 20 ML VIAL. ONE (12:53)
[2020-11-19] MEDS ORDERED: LIDOCAINE 2% PF 5 ML VIAL. ONE (13:31)
[2020-11-19] MEDS ORDERED: PROPOFOL 10 MG/ML (20ML) VIAL. IV ONE (13:31)
[2020-11-19] MEDS ORDERED: SEVOFLURANE 31 TO 60 MINUTES. IH ONE (13:48)
[2020-11-19] MEDS ORDERED: ONDANSETRON PF 4 MG/2 ML VIAL. ONE (13:48)
--- NOTE | 2020-11-19 14:28 | PDOC ---
BRIEF OPERATIVE NOTE Date: Nov 19, 2020 Pre-Op Diagnosis Left lateral foot ulcer Diabetes Peripheral neuropathy Osteomyelitis Post-Op Diagnosis same Procedure Performed Left foot debridement including skin, subcutaneous tissue, and bone Wound Vac placement Surgeon Mehnaz Anesthesia Type: General Blood Loss 2ml Specimens Obtained proximal 5th metatarsal for C&S Findings Deep wound with necrotic portion of proximal 5th metatarsal shaft Wound measures 1.7cm x 1.6cm x 1.5cm depth Complications none VAZQUEZ DEJESUS MD Nov 19, 2020 14:28
[2020-11-19] MEDS ORDERED: fentaNYL PF VIAL 100 MCG/2 ML VIAL ONE ×2 (14:47→15:29)
[2020-11-19] MEDS: fentaNYL PF VIAL 100 MCG/2 ML VIAL IVP PRN ×3 (14:49→15:32)
--- NOTE | 2020-11-19 15:30 | OP ---
DATE OF SURGERY: 11/19/2020 PREOPERATIVE DIAGNOSES: 1. Left lateral foot ulcer. 2. Left proximal fifth metatarsal osteomyelitis. 3. Diabetes with peripheral neuropathy. 4. Obstructive sleep apnea. 5. Morbid obesity. POSTOPERATIVE DIAGNOSES: 1. Left lateral foot ulcer. 2. Left proximal fifth metatarsal osteomyelitis. 3. Diabetes with peripheral neuropathy. 4. Obstructive sleep apnea. 5. Morbid obesity.. PROCEDURES: 1. Excisional debridement of left lateral foot ulcer including skin, subcutaneous tissue, and bone (approximately 2.5 cm2). 2. Wound VAC placement, left foot. SURGEON: Dr. Rohith Darby. ANESTHESIA: General. INDICATION: The patient is a 40-year-old male with diabetes and peripheral neuropathy. He has a nonhealing left lateral foot ulcer. This extends down to the proximal portion of the fifth metatarsal shaft. MRI showed evidence of osteomyelitis of the fifth metatarsal shaft. He has failed to heal the wound with local wound care. He presents for excisional debridement. FINDINGS: There was a deep wound on the lateral aspect of the left foot extending down to the proximal aspects of the fifth metatarsal shaft. Excisional debridement of all nonviable tissue was performed. The proximal portion of the metatarsal shaft was friable. Portions of this bone were sent for culture and sensitivity. The metatarsal shaft was resected to viable appearing bone. There was good bleeding at the amputation site. The wound measured 1.7 cm x 1.6 cm x 1.5 cm depth. Wound VAC placed due to failure of other wound care treatment. DESCRIPTION OF OPERATION: The patient was taken to the operating room and placed supine on the hospital bed. He underwent general anesthetic. His left foot and lower leg were prepped and draped in normal sterile fashion. Scalpel and forceps were used to elliptically excise the area of nonviable tissue around the edge of the existing ulcer. The deeper subcutaneous tissue was excised down to the proximal portion of the metatarsal shaft. The cortex of this bone was disrupted a small area. A rongeur was used to resect the bone. This bone was very friable. Sections were sent to microbiology for culture and sensitivity. All friable bone was excised using the rongeur to viable appearing bone. Once necrotic tissue was excised, electrocautery was used for hemostasis. Wound was copiously irrigated with saline irrigation. Wound measurement is as noted above. A wound VAC using Silver GranuFoam was placed down into the wound and placed to 125 mmHg continuous suction. The patient tolerated the procedure well and there were no complications. Estimated blood loss of 2 mL SPECIMEN: Left proximal metatarsal shaft for culture and sensitivity. MAGGIE/TATE DR: Gina TID: [id number] CC: ROE COCHRAN, EMMA MCKEON MD
[2020-11-19] MEDS: oxyCODONE/APAP 10/325 1 TAB TABLET PO PRN ×2 (19:05→23:34)
[2020-11-19] MEDS: HYDROmorphone 2 MG/ML VIAL IVP PRN ×2 (19:05→22:45)
--- NOTE | 2020-11-19 20:06 | PDOC ---
Infectious Disease Note Vital Signs: Vital Signs Vital Signs Date Time Temp Pulse Resp B/P (MAP) Pulse Ox O2 Delivery O2 Flow Rate FiO2 11/19/20 19:36 74 16 117/71 (86) 96 11/19/20 19:05 Room Air 15.0 11/19/20 16:20 98.2 98.2 Medications: Inpatient Meds: Medications reviewed. Labs: Lab Laboratory Tests Test 11/18/20 20:59 11/19/20 05:45 11/19/20 07:42 11/19/20 11:12 Glucose (Fingerstick) 140 mg/dL (70-99) 135 mg/dL (70-99) 146 mg/dL (70-99) White Blood Count 8.4 x10^3/uL (4.0-11.0) Red Blood Count 4.13 x10^6/uL (4.30-5.70) Hemoglobin 12.0 g/dL (13.0-17.5) Hematocrit 36.4 % (39.0-53.0) Mean Corpuscular Volume 88 fL (79-100) Mean Corpuscular Hemoglobin 29 pg (25-35) Mean Corpuscular Hemoglobin Concent 33 g/dL (31-37) Red Cell Distribution Width 14.5 % (11.5-14.5) Platelet Count 319 x10^3/uL (140-400) Neutrophils (%) (Auto) 46 % (31-73) Lymphocytes (%) (Auto) 37 % (24-48) Monocytes (%) (Auto) 6 % (0-9) Eosinophils (%) (Auto) 11 % (0-3) Basophils (%) (Auto) 1 % (0-3) Neutrophils # (Auto) 3.9 x10^3/uL (1.8-7.7) Lymphocytes # (Auto) 3.0 x10^3/uL (1.0-4.8) Monocytes # (Auto) 0.5 x10^3/uL (0.0-1.1) Eosinophils # (Auto) 0.9 x10^3/uL (0.0-0.7) Basophils # (Auto) 0.1 x10^3/uL (0.0-0.2) Erythrocyte Sedimentation Rate 42 (0-15) Sodium Level 142 mmol/L (136-145) Potassium Level 4.3 mmol/L (3.5-5.1) Chloride Level 108 mmol/L (98-107) Carbon Dioxide Level 28 mmol/L (21-32) Anion Gap 6 (6-14) Blood Urea Nitrogen 22 mg/dL (8-26) Creatinine 1.6 mg/dL (0.7-1.3) Estimated GFR (Cockcroft-Gault) 47.6 BUN/Creatinine Ratio 14 (6-20) Glucose Level 130 mg/dL (70-99) Calcium Level 8.8 mg/dL (8.5-10.1) Total Bilirubin 0.2 mg/dL (0.2-1.0) Aspartate Amino Transf (AST/SGOT) 32 U/L (15-37) Alanine Aminotransferase (ALT/SGPT) 32 U/L (16-63) Alkaline Phosphatase 99 U/L (46-116) C-Reactive Protein, Quantitative 12.3 mg/L (0-3.3) Total Protein 6.8 g/dL (6.4-8.2) Albumin 3.0 g/dL (3.4-5.0) Albumin/Globulin Ratio 0.8 (1.0-1.7) Test 11/19/20 14:32 11/19/20 16:23 Glucose (Fingerstick) 123 mg/dL (70-99) 182 mg/dL (70-99) Objective: Assessment: Pt seen and examined ID Consult dictated Plan: Plan of Care Thank ELIANE Barker MD Nov 19, 2020 20:06
[2020-11-19] MEDS: lamoTRIgine 100 MG TABLET. PO SCH (20:17)
[2020-11-19] MEDS: VENLAFAXINE 50 MG TABLET. PO SCH (20:17)
[2020-11-19] MEDS: TEMAZEPAM 15 MG CAPSULE PO SCH (20:18)
[2020-11-19] MEDS: diphenhydrAMINE HCL 25 MG CAPSULE PO SCH (20:18)
[2020-11-19] MEDS: ENOXAPARIN 40 MG/0.4 ML SYRINGE. SQ SCH (20:18)
[2020-11-19] MEDS: traZODone 50 MG TABLET. PO SCH (20:18)
[2020-11-19] MEDS: cloNIDine HCL 0.2 MG TABLET PO SCH (20:18)
--- NOTE | 2020-11-19 20:18 | NUR ---
Scheduled Lovenox non-administered per post-op protocol(do not initiate therapy sooner than 10 hours post-op).
[2020-11-19] MEDS: NORMAL SALINE IV SCH (20:19)
[2020-11-19] MEDS: DAPTOMYCIN IV SCH (20:19)
[2020-11-19] MEDS: INSULIN GLARGINE SYRINGE. SQ SCH (20:24)
[2020-11-20 03:00] VITALS: BP 111/59
[2020-11-20] MEDS: HYDROmorphone 2 MG/ML VIAL IVP PRN ×3 (04:32→19:36)
[2020-11-20] MEDS: PIPERACILLIN/TAZOBACTAM 3.375 GM in IV NORMAL SALINE 50ML 50 ML IV SCH ×3 (06:09→18:01)
[2020-11-20] MEDS: oxyCODONE/APAP 10/325 1 TAB TABLET PO PRN ×2 (06:09→14:45)
[2020-11-20 07:18] VITALS: BP 120/72
--- NOTE | 2020-11-20 07:40 | PDOC ---
Infectious Disease Note Subjective: Subjective Patient feels better today Postop pain is under control Denies fever, nausea, vomiting, shortness of breath, diarrhea, abdominal pain, rash Otherwise as above Vital Signs: Vital Signs Vital Signs Date Time Temp Pulse Resp B/P (MAP) Pulse Ox O2 Delivery O2 Flow Rate FiO2 11/20/20 07:18 98.2 70 18 120/72 (88) 96 Room Air 98.2 11/19/20 19:05 15.0 Physical Exam: PHYSICAL EXAM General alert oriented x3 male in no acute distress HEENT normocephalic atraumatic anicteric Neck supple no JVD Heart clear bilaterally Heart S1-S2 Abdomen soft nontender nondistended bowel sounds Extremities left lower extremity wound VAC in place Callus present to the left great toe dry and right plantar aspect dry Right lower extremity no swelling Neuro alert oriented x3 Psych calm cooperative PIV looks clean Medications: Inpatient Meds: Medications reviewed. Labs: Lab Laboratory Tests Test 11/19/20 07:42 11/19/20 11:12 11/19/20 14:32 11/19/20 16:23 Glucose (Fingerstick) 135 mg/dL (70-99) 146 mg/dL (70-99) 123 mg/dL (70-99) 182 mg/dL (70-99) Test 11/19/20 20:15 11/20/20 07:03 Glucose (Fingerstick) 121 mg/dL (70-99) 142 mg/dL (70-99) Objective: Assessment: Left fifth metatarsal osteomyelitis status post surgery Diabetes mellitus poorly controlled JORGE L Morbid obesity Plan: Plan of Care Continue daptomycin and Zosyn Follow-up labs and cultures Continue local wound / VAC care as directed Offload Will need PICC line ELIANE SALDIVAR MD Nov 20, 2020 07:40
[2020-11-20] MEDS: INSULIN LISPRO 300 UNITS/3 ML VIAL. SQ SCH ×6 (08:00→17:33)
[2020-11-20] MEDS: LACTOBACILLUS RHAMNOSUS GG 1 CAPSULE. PO SCH ×2 (08:53→22:05)
[2020-11-20] MEDS: GABAPENTIN 400 MG CAPSULE. PO SCH ×4 (08:53→22:06)
[2020-11-20] MEDS: FAMOTIDINE 20 MG TABLET. PO SCH ×2 (08:53→22:08)
[2020-11-20] MEDS: VENLAFAXINE 50 MG TABLET. PO SCH ×3 (08:54→22:07)
[2020-11-20] MEDS: MELOXICAM 7.5 MG TABLET PO SCH (08:54)
[2020-11-20] MEDS: ENOXAPARIN 40 MG/0.4 ML SYRINGE. SQ SCH ×2 (08:55→22:11)
[2020-11-20] MEDS: IV NORMAL SALINE 1000ML BAG 1,000 ML IV SCH (09:00)
--- NOTE | 2020-11-20 09:52 | CONS ---
DATE OF CONSULTATION: 11/19/2020 REFERRING PHYSICIAN: Raymond Daniels MD REASON FOR CONSULTATION: Antibiotic management, left foot ulcer with osteomyelitis. Late entry HISTORY OF PRESENT ILLNESS: This is a 40-year-old male with poorly-controlled diabetes who presented with complaints of nonhealing left lateral foot soft tissue ulcer extending to the bone with underlying diabetic neuropathy. The patient had been on doxycycline and Bactrim without improvement. MRI done on 11/18 revealed osteomyelitis at the base of the fifth metatarsal. The patient also started having malodorous drainage. He was admitted to [facility] and was started on IV vancomycin. He was later discharged on p.o. doxycycline and Bactrim. The patient presented here for further evaluation and treatment. He was started on IV vancomycin and Zosyn. 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 Creatinine was 1.6. Hemoglobin A1c of 10.6. White count of ____. Arterial Doppler ultrasound showed monophasic waveform with mild stenosis. Vascular Surgery has been consulted. I started the patient on daptomycin and continued on Zosyn. ID consultation was requested for further evaluation and treatment. PAST MEDICAL HISTORY: Diabetes with neuropathy, obesity, hypertension, history of pancreatitis, sleep apnea, nonhealing left lateral foot wound as above. FAMILY HISTORY: As per HPI. SOCIAL HISTORY: No smoking, or alcohol or drugs. Unemployed currently. CURRENT MEDICATIONS: Daptomycin and Zosyn. Other medications reviewed in medication list. ALLERGIES: No known drug allergies. REVIEW OF SYSTEMS: Fatigue, chills, nonhealing purulent drainage from left foot ulcer. PHYSICAL EXAMINATION: VITAL SIGNS: Temperature 98.2, pulse 71, respiratory rate 18, blood pressure 109/60, oxygen saturation 96% on room air. GENERAL: Alert, oriented x 3 male, lying in bed comfortably, in no acute distress. HEENT: Normocephalic, atraumatic. Anicteric. NECK: Supple, no JVD. LUNGS: Clear bilaterally. No wheezing. HEART: S1, S2. No gallops or murmurs. ABDOMEN: Soft, obese. Bowel sounds present, nontender. EXTREMITIES: Mild edema in the left foot. Left foot penetrating ulcer with a necrotic base, callus probes through the bone. NEUROLOGIC: Alert and oriented x 3. Grossly nonfocal. PSYCHIATRIC: Cooperative, with appropriate mood and affect. LABORATORY DATA: WBC wnl hemoglobin 12.0, hematocrit 36.4, platelets 319. ESR 42, CRP ..... Sodium 142 chloride 108, bicarb 28, BUN 22, creatinine 1.6, glucose 146, albumin 2.0. IMAGING: Arterial ultrasound as above. MRI of the foot as above. IMPRESSION: 1. Left fifth metatarsal osteomyelitis 2. Chronic nonhealing Left lateral diabetic foot ulcer, failed outpatient antibiotics. 3. Uncontrolled diabetes. 4. Peripheral vascular disease. 5. Depression and anxiety. 6. Morbid obesity. 7. Acute kidney injury. RECOMMENDATIONS: 1. Continue daptomycin and Zosyn. 2. May need renal dosing. 3. Follow up labs and cultures. 4. Continue supportive care. 5. The patient is awaiting surgery later today by Vascular. 6. Continue local wound care as directed. Thank you for allowing me to participate in this patient's care. If you have any questions, do not hesitate to contact me. LUIS/PATRICIA/EDMUNDO DR: Jose Maritn TID: [id number] YULISA
--- NOTE | 2020-11-20 09:54 | PDOC2 ---
CONSULT Date of Consult Date of Consult DATE: 11/20/20 TIME: 09:53 Reason for Consult Reason for Consult: Antibiotic management Late entry for exam done on November 19, 2020 History of Present Illness Reason for Visit: 40-year-old male admitted with nonhealing left diabetic foot ulcer along with diagnosis of left fifth metatarsal osteomyelitis Past Medical History Cardiovascular: HTN Pulmonary: No pertinent hx Endocrine: Diabetes Past Surgical History Past Surgical History: No pertinent history Family History Family History: High Cholestrol, Hypertension Social History No ALCOHOL: none Drugs: None Current Medications Current Medications Current Medications Sodium Chloride (Normal Saline Flush) 3 ml QSHIFT PRN IV AFTER MEDS AND BLOOD DRAWS; Start 11/18/20 at 16:15 Sodium Chloride 1,000 ml @ 100 mls/hr Q10H IV Last administered on 11/19/20at 22:46; Start 11/18/20 at 17:00 Ondansetron HCl (Zofran) 4 mg PRN Q4HRS PRN IV NAUSEA/VOMITING Last administered on 11/18/20at 21:06; Start 11/18/20 at 16:15 Zolpidem Tartrate (Ambien) 5 mg PRN QHS PRN PO INSOMNIA Last administered on 11/19/20at 23:33; Start 11/18/20 at 16:15 Acetaminophen (Tylenol) 650 mg PRN Q4HRS PRN PO TEMP OVER 100.4F OR MILD PAIN; Start 11/18/20 at 16:15 Al Hydroxide/Mg Hydroxide (Mylanta Plus Xs) 30 ml PRN DAILY PRN PO HEARTBURN / GAS; Start 11/18/20 at 16:15 Clonidine HCl (Catapres) 0.1 mg PRN Q6HRS PRN PO SBP>160 OR DBP>90; Start 11/18/20 at 16:15 Sodium Monofluorophosphate (Fleet Adult) 133 ml PRN DAILY PRN [place] CONSTIPATION; Start 11/18/20 at 16:15 Diphenhydramine HCl (Benadryl) 25 mg PRN Q4HRS PRN IVP ITCHING; Start 11/18/20 at 16:15 Docusate Sodium (Colace) 100 mg PRN BID PRN PO HARD STOOLS; Start 11/18/20 at 16:15 Albuterol/ Ipratropium (Duoneb) 3 ml Q4H NEB ; Start 11/18/20 at 16:15; Stop 11/18/20 at 19:50; Status DC Guaifenesin (Robitussin) 200 mg PRN Q4HRS PRN PO COUGH; Start 11/18/20 at 16:15 Lorazepam (Ativan) 0.5 mg PRN Q4HRS PRN PO ANXIETY / AGITATION; Start 11/18/20 at 16:15 Enoxaparin Sodium (Lovenox 40mg Syringe) 40 mg Q24H SQ ; Start 11/18/20 at 21:00; Stop 11/19/20 at 13:02; Status DC Vancomycin HCl 1 gm/Dextrose 250 ml @ 250 mls/hr 1X ONCE IV ; Start 11/18/20 at 16:15; Stop 11/18/20 at 16:17; Status DC Vancomycin HCl (Vanco Per Pharmacy) 1 each PRN DAILY PRN [facility] SEE COMMENTS; Start 11/18/20 at 16:15; Stop 11/18/20 at 17:46; Status DC Piperacillin Sod/ Tazobactam Sod 3.375 gm/Sodium Chloride 50 ml @ 100 mls/hr Q6HRS IV Last administered on 11/20/20at 06:09; Start 11/18/20 at 18:00 Vancomycin HCl 2 gm/Sodium Chloride 500 ml @ 250 mls/hr 1X ONCE IV ; Start 11/18/20 at 17:00; Stop 11/18/20 at 17:46; Status DC Clonidine HCl (Catapres) 0.2 mg QHS PO ; Start 11/18/20 at 21:00 Diphenhydramine HCl (Benadryl) 25 mg QHS PO ; Start 11/18/20 at 21:00 Methocarbamol (Robaxin) 500 mg QID PO ; Start 11/18/20 at 17:00; Stop 11/19/20 at 12:10; Status DC Ondansetron HCl (Zofran Odt) 4 mg PRN TID PRN PO NAUSEA/VOMITING Last administered on 11/19/20at 23:33; Start 11/18/20 at 16:45 Quetiapine Fumarate (SEROquel XR) 50 mg HS PO Last administered on 11/18/20at 21:07; Start 11/18/20 at 21:00; Stop 11/19/20 at 12:10; Status DC Venlafaxine HCl (Effexor Xr) 150 mg DAILY PO ; Start 11/19/20 at 09:00; Stop 11/19/20 at 12:10; Status DC Gabapentin (Neurontin) 800 mg QID PO Last administered on 11/20/20at 08:53; Start 11/18/20 at 17:00 Insulin Glargine (Lantus Syringe) 20 unit QHS SQ Last administered on 11/19/20at 20:24; Start 11/18/20 at 21:00 Lamotrigine (LaMICtal) 25 mg TID PO Last administered on 11/18/20at 21:06; Start 11/18/20 at 21:00; Stop 11/19/20 at 12:14; Status DC Metformin HCl (Glucophage) 1,000 mg BIDWMEALS PO ; Start 11/18/20 at 17:00; Stop 11/19/20 at 12:10; Status DC Meloxicam (Mobic) 7.5 mg DAILY PO Last administered on 11/20/20at 08:54; Start 11/19/20 at 09:00 Pantoprazole Sodium (Protonix) 40 mg DAILYAC PO ; Start 11/19/20 at 07:30; Sta tus Cancel Promethazine HCl (Phenergan) 25 mg DAILY PO ; Start 11/19/20 at 09:00; Stop 11/19/20 at 12:10; Status DC Trazodone HCl (Desyrel) 150 mg QHS PO ; Start 11/18/20 at 21:00 Insulin Human Lispro (HumaLOG) 0-5 UNITS TIDWMEALS SQ ; Start 11/18/20 at 17:00 Dextrose (Dextrose 50%-Water Syringe) 12.5 gm PRN Q15MIN PRN IV SEE COMMENTS; Start 11/18/20 at 16:45 Hydromorphone HCl (Dilaudid) 0.7 mg PRN Q3HRS PRN IVP PAIN Last administered on 11/18/20at 17:37; Start 11/18/20 at 17:15; Stop 11/18/20 at 20:23; Status DC Daptomycin 740 mg/ Sodium Chloride 50 ml @ 100 mls/hr Q24H IV Last administered on 11/19/20at 20:19; Start 11/18/20 at 18:00 Albuterol Sulfate (Ventolin Neb Soln) 2.5 mg PRN Q4HRS PRN NEB SHORTNESS OF BREATH; Start 11/18/20 at 20:00 Pharmacy Consult (C.diff Med Screen By Rx) 1 each 1X ONCE MC ; Start 11/18/20 at 20:00; Stop 11/18/20 at 20:01; Status UNV Famotidine (Pepcid) 20 mg BID PO Last administered on 11/20/20at 08:53; Start 11/18/20 at 21:00 Lactobacillus Rhamnosus (Culturelle) 1 cap BID PO Last administered on 11/20/20at 08:53; Start 11/18/20 at 21:00 Hydromorphone HCl (Dilaudid) 4 mg PRN Q6HRS PRN PO PAIN Last administered on 11/19/20at 09:00; Start 11/18/20 at 20:30; Stop 11/19/20 at 18:37; Status DC Fentanyl Citrate (Fentanyl 2ml Vial) 25 mcg PRN Q5MIN PRN IVP MILD PAIN 1-3; Start 11/19/20 at 09:45; Stop 11/20/20 at 00:36; Status DC Fentanyl Citrate (Fentanyl 2ml Vial) 50 mcg PRN Q5MIN PRN IVP MODERATE PAIN 4-6 Last administered on 11/19/20at 15:32; Start 11/19/20 at 09:45; Stop 11/20/20 at 00:36; Status DC Morphine Sulfate (Morphine Sulfate) 1 mg PRN Q10MIN PRN IVP SEVERE PAIN 7-10; Start 11/19/20 at 09:45; Stop 11/20/20 at 00:36; Status DC Ringer's Solution 1,000 ml @ 30 mls/hr Q24H IV ; Start 11/19/20 at 09:45; Stop 11/19/20 at 21:44; Status DC Hydromorphone HCl (Dilaudid) 0.5 mg PRN Q10MIN PRN IVP SEVERE PAIN 7-10, 2nd CHOICE; Start 11/19/20 at 09:45; Stop 11/20/20 at 00:36; Status DC Prochlorperazine Edisylate (Compazine) 5 mg PACU PRN PRN IVP NAUSEA, MRX1; Start 11/19/20 at 09:45; Stop 11/20/20 at 00:36; Status DC Temazepam (Restoril) 30 mg QHS PO Last administered on 11/19/20at 20:18; Start 11/19/20 at 21:00 Lamotrigine (LaMICtal) 300 mg QHS PO Last administered on 11/19/20at 20:17; Start 11/19/20 at 21:00 Venlafaxine HCl (Effexor) 50 mg TID PO Last administered on 11/20/20at 08:54; Start 11/19/20 at 21:00 Insulin Human Lispro (HumaLOG) 5 units TIDWMEALS SQ ; Start 11/19/20 at 12:15 Lidocaine HCl (Lidocaine 1% 20ml Vial) 20 ml STK-MED ONCE .ROUTE ; Start 11/19/20 at 12:53; Stop 11/19/20 at 12:53; Status DC Silver Sulfadiazine (Silvadene) 25 kvng STK-MED ONCE TP ; Start 11/19/20 at 12:53; Stop 11/19/20 at 12:53; Status DC Enoxaparin Sodium (Lovenox 40mg Syringe) 40 mg Q12HR SQ Last administered on 11/20/20at 08:55; Start 11/19/20 at 21:00 Propofol (Diprivan) 200 mg STK-MED ONCE IV ; Start 11/19/20 at 13:31; Stop 11/19/20 at 13:31; Status DC Lidocaine HCl (Lidocaine Pf 2% Vial) 5 ml STK-MED ONCE .ROUTE ; Start 11/19/20 at 13:31; Stop 11/19/20 at 13:31; Status DC Sevoflurane (Ultane) 30 ml STK-MED ONCE IH ; Start 11/19/20 at 13:48; Stop 11/19/20 at 13:48; Status DC Ondansetron HCl (Zofran) 4 mg STK-MED ONCE .ROUTE ; Start 11/19/20 at 13:48; Stop 11/19/20 at 13:48; Status DC Fentanyl Citrate (Fentanyl 2ml Vial) 100 mcg STK-MED ONCE .ROUTE ; Start 11/19/20 at 14:47; Stop 11/19/20 at 14:47; Status DC Fentanyl Citrate (Fentanyl 2ml Vial) 100 mcg STK-MED ONCE .ROUTE ; Start 11/19/20 at 15:29; Stop 11/19/20 at 15:29; Status DC Oxycodone/ Acetaminophen (Percocet 10/325) 1 tab PRN Q4HRS PRN PO MODERATE - SEVERE PAIN Last administered on 11/20/20at 06:09; Start 11/19/20 at 18:45 Hydromorphone HCl (Dilaudid) 1 mg PRN Q3HRS PRN IVP SEVERE PAIN Last administered on 11/20/20at 04:32; Start 11/19/20 at 18:45 Active Scripts Active Reported Testosterone Cypionate 200 Mg/1 Ml Vial 1 Ml IM WEEKLY Metformin Hcl Er (Metformin Hcl) 750 Mg Tab.er.24h 1 Tab PO DAILY Ondansetron Odt (Ondansetron) 8 Mg Tab.rapdis 8 Mg PO PRN Q8HRS PRN Venlafaxine Hcl Er (Venlafaxine Hcl) 150 Mg Cap.er.24h 1 Cap PO QHS Lamotrigine 200 Mg Tablet 300 Tab PO QHS Levemir Flextouch (Insulin Detemir) 100 Unit/1 Ml Insuln.pen 30 Units SQ QHS Fiasp 100 Unit/ml Flextouch (Insulin Aspart (Niacinamide)) 100 Unit/1 Ml Insuln.pen 10 Units SQ TIDWMEALS Jardiance (Empagliflozin) 25 Mg Tablet 1 Tab PO DAILY K-Tab ER (Potassium Chloride) 20 Meq Tablet.er 20 Meq PO DAILY Doxycycline Hyclate 100 Mg Capsule 1 Cap PO BID 10 Days Furosemide 80 Mg Tablet 1 Tab PO PRN DAILY PRN Hydromorphone Hcl 4 Mg Tablet 1 Tab PO PRN Q6HRS PRN Temazepam 30 Mg Capsule 1 Cap PO QHS Gabapentin 800 Mg Tablet 800 Mg PO QID Omeprazole 40 Mg Capsule.dr 40 Mg PO BID Allergies Allergies: Coded Allergies: No Known Drug Allergies (Unverified , 11/18/20) Vitals VITALS Vital Signs Date Time Temp Pulse Resp B/P (MAP) Pulse Ox O2 Delivery O2 Flow Rate FiO2 11/20/20 07:18 98.2 70 18 120/72 (88) 96 Room Air 98.2 11/19/20 19:05 15.0 Labs Labs Laboratory Tests Test 11/18/20 16:02 11/18/20 16:10 11/18/20 16:42 11/18/20 20:59 Hemoglobin A1c 10.6 % (4.8-5.6) White Blood Count 9.2 x10^3/uL (4.0-11.0) Red Blood Count 4.40 x10^6/uL (4.30-5.70) Hemoglobin 12.9 g/dL (13.0-17.5) Hematocrit 38.7 % (39.0-53.0) Mean Corpuscular Volume 88 fL (79-100) Mean Corpuscular Hemoglobin 29 pg (25-35) Mean Corpuscular Hemoglobin Concent 33 g/dL (31-37) Red Cell Distribution Width 14.2 % (11.5-14.5) Platelet Count 361 x10^3/uL (140-400) Neutrophils (%) (Auto) 52 % (31-73) Lymphocytes (%) (Auto) 29 % (24-48) Monocytes (%) (Auto) 6 % (0-9) Eosinophils (%) (Auto) 12 % (0-3) Basophils (%) (Auto) 1 % (0-3) Neutrophils # (Auto) 4.8 x10^3/uL (1.8-7.7) Lymphocytes # (Auto) 2.7 x10^3/uL (1.0-4.8) Monocytes # (Auto) 0.6 x10^3/uL (0.0-1.1) Eosinophils # (Auto) 1.1 x10^3/uL (0.0-0.7) Basophils # (Auto) 0.1 x10^3/uL (0.0-0.2) Segmented Neutrophils % 45 % (35-66) Band Neutrophils % 5 % (0-9) Lymphocytes % 34 % (24-48) Monocytes % 5 % (0-10) Eosinophils % 11 % (0-5) Platelet Estimate Adequate (ADEQUATE) Sodium Level 141 mmol/L (136-145) Potassium Level 4.4 mmol/L (3.5-5.1) Chloride Level 106 mmol/L (98-107) Carbon Dioxide Level 26 mmol/L (21-32) Anion Gap 9 (6-14) Blood Urea Nitrogen 21 mg/dL (8-26) Creatinine 1.6 mg/dL (0.7-1.3) Estimated GFR (Cockcroft-Gault) 47.6 BUN/Creatinine Ratio 13 (6-20) Glucose Level 136 mg/dL (70-99) Calcium Level 9.2 mg/dL (8.5-10.1) Total Bilirubin 0.2 mg/dL (0.2-1.0) Aspartate Amino Transf (AST/SGOT) 34 U/L (15-37) Alanine Aminotransferase (ALT/SGPT) 36 U/L (16-63) Alkaline Phosphatase 107 U/L (46-116) Total Protein 7.5 g/dL (6.4-8.2) Albumin 3.3 g/dL (3.4-5.0) Albumin/Globulin Ratio 0.8 (1.0-1.7) Glucose (Fingerstick) 141 mg/dL (70-99) 140 mg/dL (70-99) Test 11/19/20 05:45 11/19/20 07:42 11/19/20 11:12 11/19/20 14:32 White Blood Count 8.4 x10^3/uL (4.0-11.0) Red Blood Count 4.13 x10^6/uL (4.30-5.70) Hemoglobin 12.0 g/dL (13.0-17.5) Hematocrit 36.4 % (39.0-53.0) Mean Corpuscular Volume 88 fL (79-100) Mean Corpuscular Hemoglobin 29 pg (25-35) Mean Corpuscular Hemoglobin Concent 33 g/dL (31-37) Red Cell Distribution Width 14.5 % (11.5-14.5) Platelet Count 319 x10^3/uL (140-400) Neutrophils (%) (Auto) 46 % (31-73) Lymphocytes (%) (Auto) 37 % (24-48) Monocytes (%) (Auto) 6 % (0-9) Eosinophils (%) (Auto) 11 % (0-3) Basophils (%) (Auto) 1 % (0-3) Neutrophils # (Auto) 3.9 x10^3/uL (1.8-7.7) Lymphocytes # (Auto) 3.0 x10^3/uL (1.0-4.8) Monocytes # (Auto) 0.5 x10^3/uL (0.0-1.1) Eosinophils # (Auto) 0.9 x10^3/uL (0.0-0.7) Basophils # (Auto) 0.1 x10^3/uL (0.0-0.2) Erythrocyte Sedimentation Rate 42 (0-15) Sodium Level 142 mmol/L (136-145) Potassium Level 4.3 mmol/L (3.5-5.1) Chloride Level 108 mmol/L (98-107) Carbon Dioxide Level 28 mmol/L (21-32) Anion Gap 6 (6-14) Blood Urea Nitrogen 22 mg/dL (8-26) Creatinine 1.6 mg/dL (0.7-1.3) Estimated GFR (Cockcroft-Gault) 47.6 BUN/Creatinine Ratio 14 (6-20) Glucose Level 130 mg/dL (70-99) Calcium Level 8.8 mg/dL (8.5-10.1) Total Bilirubin 0.2 mg/dL (0.2-1.0) Aspartate Amino Transf (AST/SGOT) 32 U/L (15-37) Alanine Aminotransferase (ALT/SGPT) 32 U/L (16-63) Alkaline Phosphatase 99 U/L (46-116) C-Reactive Protein, Quantitative 12.3 mg/L (0-3.3) Total Protein 6.8 g/dL (6.4-8.2) Albumin 3.0 g/dL (3.4-5.0) Albumin/Globulin Ratio 0.8 (1.0-1.7) Glucose (Fingerstick) 135 mg/dL (70-99) 146 mg/dL (70-99) 123 mg/dL (70-99) Test 11/19/20 16:23 11/19/20 20:15 11/20/20 06:15 11/20/20 07:03 Glucose (Fingerstick) 182 mg/dL (70-99) 121 mg/dL (70-99) 142 mg/dL (70-99) Creatine Kinase 85 U/L (39-308) Laboratory Tests Test 11/19/20 11:12 11/19/20 14:32 11/19/20 16:23 11/19/20 20:15 Glucose (Fingerstick) 146 mg/dL (70-99) 123 mg/dL (70-99) 182 mg/dL (70-99) 121 mg/dL (70-99) Test 11/20/20 06:15 11/20/20 07:03 Creatine Kinase 85 U/L (39-308) Glucose (Fingerstick) 142 mg/dL (70-99) Assessment/Plan Assessment/Plan Please cancel Duplicate ELIANE SALDIVAR MD Nov 20, 2020 09:54
--- NOTE | 2020-11-20 09:57 | PDOC ---
SURGICAL PROGRESS NOTE DATE: 11/20/20 TIME: 09:55 Subjective Patient seen and examined at the bedside and is doing well. His pain is under good control. Wound VAC is in place. Vital Signs Vital Signs Date Time Temp Pulse Resp B/P (MAP) Pulse Ox O2 Delivery O2 Flow Rate FiO2 11/20/20 07:18 98.2 70 18 120/72 (88) 96 Room Air 98.2 11/19/20 19:05 15.0 I&O Intake and Output 11/20/20 07:00 Intake Total 4546 ml Output Total 2152 ml Balance 2394 ml Intake Oral 2296 ml IV Total 2250 ml Output Urine Total 2150 ml Estimated Blood Loss 2 ml General: Alert, Oriented X3, Cooperative Lungs: Clear to auscultation, Normal air movement Heart: Normal S1, Normal S2 Abdomen: Normal bowel sounds, Soft, Other (Morbidly obese) Extremities: No edema, Normal pulses, Other (Left foot wound VAC in place without cellulitis or erythema) Neuro: Normal speech, Strength at 5/5 X4 ext, Sensation intact, Cranial nerves 3-12 NL Psych/Mental Status: Mental status NL, Mood NL Labs Laboratory Tests Test 11/18/20 16:02 11/18/20 16:10 11/18/20 16:42 11/18/20 20:59 Hemoglobin A1c 10.6 % (4.8-5.6) White Blood Count 9.2 x10^3/uL (4.0-11.0) Red Blood Count 4.40 x10^6/uL (4.30-5.70) Hemoglobin 12.9 g/dL (13.0-17.5) Hematocrit 38.7 % (39.0-53.0) Mean Corpuscular Volume 88 fL (79-100) Mean Corpuscular Hemoglobin 29 pg (25-35) Mean Corpuscular Hemoglobin Concent 33 g/dL (31-37) Red Cell Distribution Width 14.2 % (11.5-14.5) Platelet Count 361 x10^3/uL (140-400) Neutrophils (%) (Auto) 52 % (31-73) Lymphocytes (%) (Auto) 29 % (24-48) Monocytes (%) (Auto) 6 % (0-9) Eosinophils (%) (Auto) 12 % (0-3) Basophils (%) (Auto) 1 % (0-3) Neutrophils # (Auto) 4.8 x10^3/uL (1.8-7.7) Lymphocytes # (Auto) 2.7 x10^3/uL (1.0-4.8) Monocytes # (Auto) 0.6 x10^3/uL (0.0-1.1) Eosinophils # (Auto) 1.1 x10^3/uL (0.0-0.7) Basophils # (Auto) 0.1 x10^3/uL (0.0-0.2) Segmented Neutrophils % 45 % (35-66) Band Neutrophils % 5 % (0-9) Lymphocytes % 34 % (24-48) Monocytes % 5 % (0-10) Eosinophils % 11 % (0-5) Platelet Estimate Adequate (ADEQUATE) Sodium Level 141 mmol/L (136-145) Potassium Level 4.4 mmol/L (3.5-5.1) Chloride Level 106 mmol/L (98-107) Carbon Dioxide Level 26 mmol/L (21-32) Anion Gap 9 (6-14) Blood Urea Nitrogen 21 mg/dL (8-26) Creatinine 1.6 mg/dL (0.7-1.3) Estimated GFR (Cockcroft-Gault) 47.6 BUN/Creatinine Ratio 13 (6-20) Glucose Level 136 mg/dL (70-99) Calcium Level 9.2 mg/dL (8.5-10.1) Total Bilirubin 0.2 mg/dL (0.2-1.0) Aspartate Amino Transf (AST/SGOT) 34 U/L (15-37) Alanine Aminotransferase (ALT/SGPT) 36 U/L (16-63) Alkaline Phosphatase 107 U/L (46-116) Total Protein 7.5 g/dL (6.4-8.2) Albumin 3.3 g/dL (3.4-5.0) Albumin/Globulin Ratio 0.8 (1.0-1.7) Glucose (Fingerstick) 141 mg/dL (70-99) 140 mg/dL (70-99) Test 11/19/20 05:45 11/19/20 07:42 11/19/20 11:12 11/19/20 14:32 White Blood Count 8.4 x10^3/uL (4.0-11.0) Red Blood Count 4.13 x10^6/uL (4.30-5.70) Hemoglobin 12.0 g/dL (13.0-17.5) Hematocrit 36.4 % (39.0-53.0) Mean Corpuscular Volume 88 fL (79-100) Mean Corpuscular Hemoglobin 29 pg (25-35) Mean Corpuscular Hemoglobin Concent 33 g/dL (31-37) Red Cell Distribution Width 14.5 % (11.5-14.5) Platelet Count 319 x10^3/uL (140-400) Neutrophils (%) (Auto) 46 % (31-73) Lymphocytes (%) (Auto) 37 % (24-48) Monocytes (%) (Auto) 6 % (0-9) Eosinophils (%) (Auto) 11 % (0-3) Basophils (%) (Auto) 1 % (0-3) Neutrophils # (Auto) 3.9 x10^3/uL (1.8-7.7) Lymphocytes # (Auto) 3.0 x10^3/uL (1.0-4.8) Monocytes # (Auto) 0.5 x10^3/uL (0.0-1.1) Eosinophils # (Auto) 0.9 x10^3/uL (0.0-0.7) Basophils # (Auto) 0.1 x10^3/uL (0.0-0.2) Erythrocyte Sedimentation Rate 42 (0-15) Sodium Level 142 mmol/L (136-145) Potassium Level 4.3 mmol/L (3.5-5.1) Chloride Level 108 mmol/L (98-107) Carbon Dioxide Level 28 mmol/L (21-32) Anion Gap 6 (6-14) Blood Urea Nitrogen 22 mg/dL (8-26) Creatinine 1.6 mg/dL (0.7-1.3) Estimated GFR (Cockcroft-Gault) 47.6 BUN/Creatinine Ratio 14 (6-20) Glucose Level 130 mg/dL (70-99) Calcium Level 8.8 mg/dL (8.5-10.1) Total Bilirubin 0.2 mg/dL (0.2-1.0) Aspartate Amino Transf (AST/SGOT) 32 U/L (15-37) Alanine Aminotransferase (ALT/SGPT) 32 U/L (16-63) Alkaline Phosphatase 99 U/L (46-116) C-Reactive Protein, Quantitative 12.3 mg/L (0-3.3) Total Protein 6.8 g/dL (6.4-8.2) Albumin 3.0 g/dL (3.4-5.0) Albumin/Globulin Ratio 0.8 (1.0-1.7) Glucose (Fingerstick) 135 mg/dL (70-99) 146 mg/dL (70-99) 123 mg/dL (70-99) Test 11/19/20 16:23 11/19/20 20:15 11/20/20 06:15 11/20/20 07:03 Glucose (Fingerstick) 182 mg/dL (70-99) 121 mg/dL (70-99) 142 mg/dL (70-99) Creatine Kinase 85 U/L (39-308) Laboratory Tests Test 11/19/20 11:12 11/19/20 14:32 11/19/20 16:23 11/19/20 20:15 Glucose (Fingerstick) 146 mg/dL (70-99) 123 mg/dL (70-99) 182 mg/dL (70-99) 121 mg/dL (70-99) Test 11/20/20 06:15 11/20/20 07:03 Creatine Kinase 85 U/L (39-308) Glucose (Fingerstick) 142 mg/dL (70-99) Assessment/Plan Left diabetic foot infection--patient is status post debridement of the left foot wound with wound VAC placement. He will need home wound VAC therapy arranged. Will defer antibiotic therapy to infectious disease. Justicifation of Admission Dx: Justifications for Admission: Justification of Admission Dx: Yes Cellulitis: Cellulitis GL CLEMENT DO Nov 20, 2020 09:57
[2020-11-20 10:43] VITALS: BP 121/85
--- NOTE | 2020-11-20 12:35 | PDOC ---
[employer] PROGRESS NOTE Date of Service DOS: DATE: 11/20/20 TIME: 12:33 Chief Complaint Chief Complaint Assessment/Plan IMPRESSION: Acute osteomyelitis of the base of the fifth metatarsal with overlying soft tissue ulcer. Status post excisional debridement 11/19/2020 with vascular surgery diabetes PVD neuropathy of left foot, denies painful symptoms hx Depression, anxiety Obesity Continue wound VAC Wound care consult Follow-up blood and wound cultures Continue IV Dapto and Zosyn BLOOD CULTURES ID CONSULT Emperic iv antibiotics wound care consult home meds Arterial doppler both legs A1C ACCUCHECKS History of Present Illness History of Present Illness 11/19/2020 No acute events overnight. No concerns from nursing. Patient seen and examined bedside. On-call to the OR today for with vascular surgery. Patient's chart, labs, images were reviewed and discussed with RN worsening ulcer to his left lateral foot approximately 3 weeks ago, now mri pos osteomyelitis// overlying soft tissue ulcer measuring 1.8 x 1.6 cm, extending to the bone due to .neuropathy of left foot, patient usually denies painful symptoms now has a deep aching pain in foot MRI resulted 11/18 revealed osteomyelitis of the base of the fifth metatarsal Patient states approximately 1 week ago he began to notice malodorous drainage. Patient was admitted to [facility] and was treated for left lower extremity cellulitis with IV vancomycin. 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 , now unemployed plan admit IV ANTIBIOTICS BLOOD CULTURES /ID CONSULT Emperic iv antibiotics wound care consult home meds Arterial doppler both legs A1C ACCUCHECKS Vitals/I&O Vitals/I&O: Vital Signs Date Time Temp Pulse Resp B/P (MAP) Pulse Ox O2 Delivery O2 Flow Rate FiO2 11/20/20 11:20 Room Air 11/20/20 10:43 97.4 73 18 121/85 (97) 97 97.4 11/19/20 19:05 15.0 I & O 11/19/20 11/19/20 11/20/20 15:00 23:00 07:00 Intake Total 1100 ml 2416 ml 1030 ml Output Total 2 ml 1600 ml 550 ml Balance 1098 ml 816 ml 480 ml Physical Exam Physical Exam: General alert oriented x3 male in no acute distress HEENT normocephalic atraumatic anicteric Neck supple no JVD Heart clear bilaterally Heart S1-S2 Abdomen soft nontender nondistended bowel sounds Extremities left lower extremity wound VAC in place Callus present to the left great toe dry and right plantar aspect dry Right lower extremity no swelling Neuro alert oriented x3 Psych calm cooperative PIV looks clean General: Alert, Oriented X3, Cooperative Heart: Normal S1, Normal S2 Abdomen: Normal bowel sounds, Soft, Other (Morbidly obese) Extremities: No edema, Normal pulses, Other (Left foot wound VAC in place without cellulitis or erythema) Skin: Other (Left lateral foot penetrating ulcer with slough tissue at base and hypertrophied callous edges, probes to bone. No drainage or surrounding erythema. ) Labs Labs: Laboratory Tests Test 11/19/20 14:32 11/19/20 16:23 11/19/20 20:15 11/20/20 06:15 Glucose (Fingerstick) 123 mg/dL (70-99) 182 mg/dL (70-99) 121 mg/dL (70-99) Creatine Kinase 85 U/L (39-308) Test 11/20/20 07:03 11/20/20 11:29 Glucose (Fingerstick) 142 mg/dL (70-99) 144 mg/dL (70-99) Comment Review of Relevant I have reviewed the following items martell (where applicable) has been applied. Medications: Current Medications Medications (Trade) Dose Ordered Sig/Radha Route PRN Reason Start Time Stop Time Status Last Admin Dose Admin Temazepam (Restoril) 30 mg QHS PO 11/19/20 21:00 11/19/20 20:18 Lamotrigine (LaMICtal) 300 mg QHS PO 11/19/20 21:00 11/19/20 20:17 Venlafaxine HCl (Effexor) 50 mg TID PO 11/19/20 21:00 11/20/20 08:54 Enoxaparin Sodium (Lovenox 40mg Syringe) 40 mg Q12HR SQ 11/19/20 21:00 11/20/20 08:55 Oxycodone/ Acetaminophen (Percocet 10/325) 1 tab PRN Q4HRS PRN PO MODERATE - SEVERE PAIN 11/19/20 18:45 11/20/20 06:09 Hydromorphone HCl (Dilaudid) 1 mg PRN Q3HRS PRN IVP SEVERE PAIN 11/19/20 18:45 11/20/20 11:20 Justifications for Admission Other Justification osteomyelitis foot RICHARD FITZGERALD MD Nov 20, 2020 12:35
[2020-11-20 14:26] VITALS: BP 112/47
[2020-11-20] MEDS: DAPTOMYCIN IV SCH (17:28)
[2020-11-20] MEDS: NORMAL SALINE IV SCH (17:28)
[2020-11-20 19:35] VITALS: BP 128/76
[2020-11-20] MEDS: cloNIDine HCL 0.2 MG TABLET PO SCH (22:00)
[2020-11-20] MEDS: traZODone 50 MG TABLET. PO SCH (22:07)
[2020-11-20] MEDS: lamoTRIgine 100 MG TABLET. PO SCH (22:08)
[2020-11-20] MEDS: diphenhydrAMINE HCL 25 MG CAPSULE PO SCH (22:10)
[2020-11-20] MEDS: TEMAZEPAM 15 MG CAPSULE PO SCH (22:10)
[2020-11-20] MEDS: INSULIN GLARGINE SYRINGE. SQ SCH (22:13)
[2020-11-20 23:30] VITALS: BP 150/79
[2020-11-21] MEDS: PIPERACILLIN/TAZOBACTAM 3.375 GM in IV NORMAL SALINE 50ML 50 ML IV SCH ×4 (00:16→18:20)
[2020-11-21 03:31] VITALS: BP 127/70
[2020-11-21] MEDS: IV NORMAL SALINE 1000ML BAG 1,000 ML IV SCH ×3 (05:21→18:00)
[2020-11-21 07:23] VITALS: BP 123/74
[2020-11-21] MEDS: INSULIN LISPRO 300 UNITS/3 ML VIAL. SQ SCH ×6 (07:27→17:23)
[2020-11-21] MEDS: LACTOBACILLUS RHAMNOSUS GG 1 CAPSULE. PO SCH ×2 (08:15→21:17)
[2020-11-21] MEDS: FAMOTIDINE 20 MG TABLET. PO SCH ×2 (08:16→21:18)
[2020-11-21] MEDS: VENLAFAXINE 50 MG TABLET. PO SCH ×3 (08:16→21:18)
[2020-11-21] MEDS: ENOXAPARIN 40 MG/0.4 ML SYRINGE. SQ SCH ×2 (08:16→21:18)
[2020-11-21] MEDS: GABAPENTIN 400 MG CAPSULE. PO SCH ×4 (08:16→21:17)
[2020-11-21] MEDS: MELOXICAM 7.5 MG TABLET PO SCH (08:24)
[2020-11-21 09:22] LABS: BASO # 0.1 x10^3/uL (0.0-0.2); BASO % 1 % (0-3); EOS # 0.7 x10^3/uL (0.0-0.7); EOS % 11 % (0-3); HEMATOCRIT 36.7 % (39.0-53.0); HEMOGLOBIN 11.9 g/dL (13.0-17.5); LYMPH # 2.2 x10^3/uL (1.0-4.8); LYMPH % 35 % (24-48); MEAN CORPUSCULAR HEMOGLOBIN 29 pg (25-35); MEAN CORPUSCULAR HGB CONC 33 g/dL (31-37); MEAN CORPUSCULAR VOLUME 88 fL (79-100); MONO # 0.4 x10^3/uL (0.0-1.1); MONO % 6 % (0-9); NEUT % 47 % (31-73); PLATELET COUNT 304 x10^3/uL (140-400); RED BLOOD COUNT 4.18 x10^6/uL (4.30-5.70); RED CELL DISTRIBUTION WIDTH 14.8 % (11.5-14.5); WHITE BLOOD COUNT 6.4 x10^3/uL (4.0-11.0)
--- NOTE | 2020-11-21 09:22 | PDOC ---
Infectious Disease Note Subjective: Subjective Patient is resting quietly on BiPAP Vital Signs: Vital Signs Vital Signs Date Time Temp Pulse Resp B/P (MAP) Pulse Ox O2 Delivery O2 Flow Rate FiO2 11/21/20 07:23 67 18 123/74 (90) 88 BiPAP/CPAP 11/21/20 03:31 98.4 98.4 Physical Exam: PHYSICAL EXAM General alert oriented x3 male in no acute distress HEENT normocephalic atraumatic anicteric Neck supple no JVD Heart clear bilaterally Heart S1-S2 Abdomen soft nontender nondistended bowel sounds Extremities left lower extremity wound VAC in place Callus present to the left great toe dry and right plantar aspect dry Right lower extremity no swelling Neuro alert oriented x3 Psych calm cooperative PIV looks clean Medications: Inpatient Meds: Medications reviewed. Labs: Lab Laboratory Tests Test 11/20/20 11:29 11/20/20 16:11 11/20/20 20:46 11/21/20 06:54 Glucose (Fingerstick) 144 mg/dL (70-99) 156 mg/dL (70-99) 165 mg/dL (70-99) 141 mg/dL (70-99) Objective: Assessment: Left fifth metatarsal osteomyelitis status post surgery Diabetes mellitus poorly controlled JORGE L Morbid obesity Plan: Plan of Care Continue daptomycin and Zosyn Follow-up labs and cultures Intraoperative cultures pending Continue local wound / VAC care as directed Offload Will need PICC line ELIANE SALDIVAR MD Nov 21, 2020 09:22
[2020-11-21] MEDS: oxyCODONE/APAP 10/325 1 TAB TABLET PO PRN ×3 (09:29→22:52)
[2020-11-21 09:38] LABS: CALCIUM 8.4 mg/dL (8.5-10.1); CREATININE 1.5 mg/dL (0.7-1.3); GFR 51.3; MAGNESIUM 2.4 mg/dL (1.8-2.4); POTASSIUM 4.1 mmol/L (3.5-5.1)
--- NOTE | 2020-11-21 09:45 | PDOC ---
[employer] PROGRESS NOTE Date of Service DOS: DATE: 11/21/20 TIME: 09:44 Chief Complaint Chief Complaint Assessment/Plan IMPRESSION: Acute osteomyelitis of the base of the fifth metatarsal with overlying soft tissue ulcer. Status post excisional debridement 11/19/2020 with vascular surgery diabetes PVD neuropathy of left foot, denies painful symptoms hx Depression, anxiety Obesity Continue wound VAC Wound care consult Follow-up blood and wound cultures Continue IV Dapto and Zosyn BLOOD CULTURES ID CONSULT Emperic iv antibiotics wound care consult home meds Arterial doppler both legs A1C ACCUCHECKS History of Present Illness History of Present Illness 11/21/2020 No acute events overnight. Patient's postoperative pain is well controlled. Patient seen and examined bedside. Wound VAC suctioning without any leaks or active bleeding. Patient will need PICC line for IV antibiotics per ID. Patient's chart, labs, images were reviewed and discussed with RN 11/19/2020 No acute events overnight. No concerns from nursing. Patient seen and examined bedside. On-call to the OR today for with vascular surgery. Patient's chart, labs, images were reviewed and discussed with RN worsening ulcer to his left lateral foot approximately 3 weeks ago, now mri pos osteomyelitis// overlying soft tissue ulcer measuring 1.8 x 1.6 cm, extending to the bone due to .neuropathy of left foot, patient usually denies painful symptoms now has a deep aching pain in foot MRI resulted 11/18 revealed osteomyelitis of the base of the fifth metatarsal Patient states approximately 1 week ago he began to notice malodorous drainage. Patient was admitted to [facility] and was treated for left lower extremity cellulitis with IV vancomycin. 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 unemployed plan admit IV ANTIBIOTICS BLOOD CULTURES /ID CONSULT Emperic iv antibiotics wound care consult home meds Arterial doppler both legs A1C ACCUCHECKS Vitals/I&O Vitals/I&O: Vital Signs Date Time Temp Pulse Resp B/P (MAP) Pulse Ox O2 Delivery O2 Flow Rate FiO2 11/21/20 08:00 Bi-pap 11/21/20 07:23 67 18 123/74 (90) 88 11/21/20 03:31 98.4 98.4 I & O 11/20/20 11/20/20 11/21/20 15:00 23:00 07:00 Intake Total 50 ml 100 ml 1620 ml Output Total 750 ml Balance 50 ml 100 ml 870 ml Physical Exam Physical Exam: General alert oriented x3 male in no acute distress HEENT normocephalic atraumatic anicteric Neck supple no JVD Heart clear bilaterally Heart S1-S2 Abdomen soft nontender nondistended bowel sounds Extremities left lower extremity wound VAC in place Callus present to the left great toe dry and right plantar aspect dry Right lower extremity no swelling Neuro alert oriented x3 Psych calm cooperative PIV looks clean General: Alert, Oriented X3, Cooperative Heart: Normal S1, Normal S2 Abdomen: Normal bowel sounds, Soft, Other (Morbidly obese) Extremities: No edema, Normal pulses, Other (Left foot wound VAC in place without cellulitis or erythema) Skin: Other (Left lateral foot penetrating ulcer with slough tissue at base and hypertrophied callous edges, probes to bone. No drainage or surrounding erythema. ) Labs Labs: Laboratory Tests Test 11/20/20 11:29 11/20/20 16:11 11/20/20 20:46 11/21/20 06:54 Glucose (Fingerstick) 144 mg/dL (70-99) 156 mg/dL (70-99) 165 mg/dL (70-99) 141 mg/dL (70-99) Test 11/21/20 08:35 White Blood Count 6.4 x10^3/uL (4.0-11.0) Red Blood Count 4.18 x10^6/uL (4.30-5.70) Hemoglobin 11.9 g/dL (13.0-17.5) Hematocrit 36.7 % (39.0-53.0) Mean Corpuscular Volume 88 fL (79-100) Mean Corpuscular Hemoglobin 29 pg (25-35) Mean Corpuscular Hemoglobin Concent 33 g/dL (31-37) Red Cell Distribution Width 14.8 % (11.5-14.5) Platelet Count 304 x10^3/uL (140-400) Neutrophils (%) (Auto) 47 % (31-73) Lymphocytes (%) (Auto) 35 % (24-48) Monocytes (%) (Auto) 6 % (0-9) Eosinophils (%) (Auto) 11 % (0-3) Basophils (%) (Auto) 1 % (0-3) Neutrophils # (Auto) 3.0 x10^3/uL (1.8-7.7) Lymphocytes # (Auto) 2.2 x10^3/uL (1.0-4.8) Monocytes # (Auto) 0.4 x10^3/uL (0.0-1.1) Eosinophils # (Auto) 0.7 x10^3/uL (0.0-0.7) Basophils # (Auto) 0.1 x10^3/uL (0.0-0.2) Sodium Level 142 mmol/L (136-145) Potassium Level 4.1 mmol/L (3.5-5.1) Chloride Level 107 mmol/L (98-107) Carbon Dioxide Level 23 mmol/L (21-32) Anion Gap 12 (6-14) Blood Urea Nitrogen 16 mg/dL (8-26) Creatinine 1.5 mg/dL (0.7-1.3) Estimated GFR (Cockcroft-Gault) 51.3 Glucose Level 160 mg/dL (70-99) Calcium Level 8.4 mg/dL (8.5-10.1) Magnesium Level 2.4 mg/dL (1.8-2.4) Comment Review of Relevant I have reviewed the following items martell (where applicable) has been applied. Justifications for Admission Other Justification osteomyelitis foot RICHARD FITZGERALD MD Nov 21, 2020 09:45
[2020-11-21] MEDS: HYDROmorphone 2 MG/ML VIAL IVP PRN ×2 (14:36→18:22)
[2020-11-21 14:43] VITALS: BP 102/63
[2020-11-21] MEDS: DAPTOMYCIN IV SCH (18:19)
[2020-11-21] MEDS: NORMAL SALINE IV SCH (18:19)
[2020-11-21 19:22] VITALS: BP 141/68
[2020-11-21] MEDS: cloNIDine HCL 0.2 MG TABLET PO SCH (21:00)
[2020-11-21] MEDS: diphenhydrAMINE HCL 25 MG CAPSULE PO SCH (21:17)
[2020-11-21] MEDS: TEMAZEPAM 15 MG CAPSULE PO SCH (21:17)
[2020-11-21] MEDS: traZODone 50 MG TABLET. PO SCH (21:17)
[2020-11-21] MEDS: lamoTRIgine 100 MG TABLET. PO SCH (21:17)
[2020-11-21] MEDS: INSULIN GLARGINE SYRINGE. SQ SCH (21:20)
[2020-11-21 22:43] VITALS: BP 104/62
[2020-11-22] MEDS: PIPERACILLIN/TAZOBACTAM 3.375 GM in IV NORMAL SALINE 50ML 50 ML IV SCH ×4 (00:51→18:02)
[2020-11-22] MEDS: HYDROmorphone 2 MG/ML VIAL IVP PRN ×4 (01:57→22:46)
[2020-11-22 02:52] VITALS: BP 103/71
[2020-11-22 07:00] VITALS: BP 126/64
[2020-11-22 07:14] LABS: ALBUMIN 2.8 g/dL (3.4-5.0); ALBUMIN/GLOBULIN RATIO 0.8 (1.0-1.7); CALCIUM 8.4 mg/dL (8.5-10.1); CREATININE 1.5 mg/dL (0.7-1.3); GFR 51.3; POTASSIUM 4.1 mmol/L (3.5-5.1); TOTAL BILIRUBIN 0.2 mg/dL (0.2-1.0); TOTAL PROTEIN 6.3 g/dL (6.4-8.2)
[2020-11-22] MEDS: INSULIN LISPRO 300 UNITS/3 ML VIAL. SQ SCH ×6 (08:00→18:11)
[2020-11-22] MEDS: VENLAFAXINE 50 MG TABLET. PO SCH ×3 (08:39→22:31)
[2020-11-22] MEDS: GABAPENTIN 400 MG CAPSULE. PO SCH ×4 (08:39→22:31)
[2020-11-22] MEDS: FAMOTIDINE 20 MG TABLET. PO SCH ×2 (08:39→22:31)
[2020-11-22] MEDS: MELOXICAM 7.5 MG TABLET PO SCH (08:39)
[2020-11-22] MEDS: LACTOBACILLUS RHAMNOSUS GG 1 CAPSULE. PO SCH ×2 (08:39→22:31)
[2020-11-22] MEDS: ENOXAPARIN 40 MG/0.4 ML SYRINGE. SQ SCH ×2 (08:40→22:29)
[2020-11-22] MEDS: oxyCODONE/APAP 10/325 1 TAB TABLET PO PRN (10:18)
--- NOTE | 2020-11-22 10:40 | PDOC ---
Infectious Disease Note Subjective Subjective Patient is feeling good ROS ROS no n/v/d/sob Vital Sign Vital Signs Vital Signs Date Time Temp Pulse Resp B/P (MAP) Pulse Ox O2 Delivery O2 Flow Rate FiO2 11/22/20 07:00 97.7 61 18 126/64 (84) 94 BiPAP/CPAP 97.7 Physical Exam PHYSICAL EXAM General alert oriented x3 male in no acute distress HEENT normocephalic atraumatic anicteric Neck supple no JVD Heart clear bilaterally Heart S1-S2 Abdomen soft nontender nondistended bowel sounds Extremities left lower extremity wound VAC in place Callus present to the left great toe dry and right plantar aspect dry Right lower extremity no swelling Neuro alert oriented x3 Psych calm cooperative PIV looks clean Labs Lab Laboratory Tests Test 11/21/20 11:13 11/21/20 16:04 11/21/20 20:58 11/22/20 05:40 Glucose (Fingerstick) 170 mg/dL (70-99) 148 mg/dL (70-99) 138 mg/dL (70-99) Sodium Level 143 mmol/L (136-145) Potassium Level 4.1 mmol/L (3.5-5.1) Chloride Level 109 mmol/L (98-107) Carbon Dioxide Level 24 mmol/L (21-32) Anion Gap 10 (6-14) Blood Urea Nitrogen 17 mg/dL (8-26) Creatinine 1.5 mg/dL (0.7-1.3) Estimated GFR (Cockcroft-Gault) 51.3 BUN/Creatinine Ratio 11 (6-20) Glucose Level 146 mg/dL (70-99) Calcium Level 8.4 mg/dL (8.5-10.1) Total Bilirubin 0.2 mg/dL (0.2-1.0) Aspartate Amino Transf (AST/SGOT) 26 U/L (15-37) Alanine Aminotransferase (ALT/SGPT) 27 U/L (16-63) Alkaline Phosphatase 103 U/L (46-116) Creatine Kinase 103 U/L (39-308) Total Protein 6.3 g/dL (6.4-8.2) Albumin 2.8 g/dL (3.4-5.0) Albumin/Globulin Ratio 0.8 (1.0-1.7) Test 11/22/20 07:05 Glucose (Fingerstick) 145 mg/dL (70-99) Micro GRAM STAIN Final Final NO ORGANISMS SEEN. RBC:MODERATE SQUAMOUS EPI CELL:NONE SEEN PMN (WBCs):FEW ANAEROBIC-AEROBIC CULTURE Preliminary Preliminary No Growth on 11/21/20 at 1113 No Growth on 11/22/20 at 1009 Unless otherwise specified, Testing Performed by: [facility] [address] [place] [address] For Inquires, the Physician may contact the Microbiology department at [phone] Objective Assessment Left fifth metatarsal osteomyelitis status post surgery,, also exposure to flooded basement water Diabetes mellitus poorly controlled JORGE L Morbid obesity Plan Plan of Care Continue daptomycin and Zosyn Follow-up labs and cultures Intraoperative cultures pending Continue local wound / VAC care as directed Offload PICC line d/c after that f/u with me in 2 wks FAIZAN SALDIVAR MD Nov 22, 2020 10:40
[2020-11-22] MEDS: IV NORMAL SALINE 1000ML BAG 1,000 ML IV SCH ×3 (10:41→22:39)
--- NOTE | 2020-11-22 10:48 | NUR ---
ANMOL following. Discussed with RN, pt from home, room air/ bipap, ada diet. Dr. Issa stating pt will need IV dapto and Zosyn. SW to meet with pt to discuss home infusion. Pt getting PICC line some time after noon. Per RN, wound care has to come back, pt likely won't be ready for discharge until tomorrow. SW awaiting IV abx script to arrange abx. ANMOL will continue to follow. Addendum: 11/22/20 at 1512 by GIANCARLO COREA ANMOL met with pt earlier in the day. He would like the company he had the first time (thinks about 5 years ago), does not want the company he had the second time. Pt gave ANMOL permission to contact some home infusion companies to see if he had been a patient of theirs. Pt was with [facility] in 2018 and [facility] in 2019, has not have [facility]. ANMOL faxed referral to [facility], awaiting benefits and confirmation of whether they can do the nursing too. Pt got PICC line this afternoon. RN notified. Addendum: 11/22/20 at 1609 by GIANCARLO COREA [facility] can accept pt and do nursing care. Pt will be responsible for $977 a week until deductible of $5900 met. SW notified pt, he thinks he will have met the deductible by the time he goes home. SW requested [facility] to do the teach tomorrow - awaiting time. RN notified.
[2020-11-22 10:52] VITALS: BP 122/67
--- NOTE | 2020-11-22 11:40 | PDOC ---
[employer] PROGRESS NOTE Date of Service DOS: DATE: 11/22/20 TIME: 11:37 Chief Complaint Chief Complaint Assessment/Plan IMPRESSION: Acute osteomyelitis of the base of the fifth metatarsal with overlying soft tissue ulcer. Status post excisional debridement 11/19/2020 with vascular surgery diabetes PVD neuropathy of left foot, denies painful symptoms hx Depression, anxiety Obesity Continue wound VAC Wound care consult Follow-up blood and wound cultures Continue IV Dapto and Zosyn BLOOD CULTURES ID CONSULT Emperic iv antibiotics wound care consult home meds Arterial doppler both legs A1C ACCUCHECKS History of Present Illness History of Present Illness Mr Haines is a 40yo M w/ PMHx DM2, polyneuropathy, Morbid obesity who presents with worsening ulcer to his left lateral foot approximately 3 weeks ago, was admitted to [place] for several days, now mri pos osteomyelitis// overlying soft tissue ulcer measuring 1.8 x 1.6 cm, extending to the bone due to .neuropathy of left foot, patient usually denies painful symptoms now has a deep aching pain in foot MRI resulted 11/18 revealed osteomyelitis of the base of the fifth metatarsal Patient states approximately 1 week ago he began to notice malodorous drainage. Patient was admitted to [facility] and was treated for left lower extremity cellulitis with IV vancomycin. 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 No concerns from nursing. Patient seen and examined bedside. On-call to the OR today for with vascular surgery for I&D and wound vac 11/21 No acute events overnight. Patient's postoperative pain is well controlled. Patient seen and examined bedside. Wound VAC suctioning without any leaks or active bleeding. Afebrile. Pain is cultures pending. Tentative plan for PICC in the next 24 hours and home antibiotics. Vitals/I&O Vitals/I&O: Vital Signs Date Time Temp Pulse Resp B/P (MAP) Pulse Ox O2 Delivery O2 Flow Rate FiO2 11/22/20 10:52 98.0 61 18 122/67 (85) 96 BiPAP/CPAP 98.0 I & O 11/21/20 11/21/20 11/22/20 15:00 23:00 07:00 Intake Total 50 ml 280 ml 0 ml Output Total 400 ml Balance 50 ml -120 ml 0 ml Physical Exam Physical Exam: General alert oriented x3 male in no acute distress HEENT normocephalic atraumatic anicteric Neck supple no JVD Heart clear bilaterally Heart S1-S2 Abdomen soft nontender nondistended bowel sounds Extremities left lower extremity wound VAC in place Callus present to the left great toe dry and right plantar aspect dry Right lower extremity no swelling Neuro alert oriented x3 Psych calm cooperative PIV looks clean General: Alert, Oriented X3, Cooperative Heart: Normal S1, Normal S2 Abdomen: Normal bowel sounds, Soft, Other (Morbidly obese) Extremities: No edema, Normal pulses, Other (Left foot wound VAC in place without cellulitis or erythema) Skin: Other (Left lateral foot penetrating ulcer with slough tissue at base and hypertrophied callous edges, probes to bone. No drainage or surrounding erythema. ) Labs Labs: Laboratory Tests Test 11/21/20 16:04 11/21/20 20:58 11/22/20 05:40 11/22/20 07:05 Glucose (Fingerstick) 148 mg/dL (70-99) 138 mg/dL (70-99) 145 mg/dL (70-99) Sodium Level 143 mmol/L (136-145) Potassium Level 4.1 mmol/L (3.5-5.1) Chloride Level 109 mmol/L (98-107) Carbon Dioxide Level 24 mmol/L (21-32) Anion Gap 10 (6-14) Blood Urea Nitrogen 17 mg/dL (8-26) Creatinine 1.5 mg/dL (0.7-1.3) Estimated GFR (Cockcroft-Gault) 51.3 BUN/Creatinine Ratio 11 (6-20) Glucose Level 146 mg/dL (70-99) Calcium Level 8.4 mg/dL (8.5-10.1) Total Bilirubin 0.2 mg/dL (0.2-1.0) Aspartate Amino Transf (AST/SGOT) 26 U/L (15-37) Alanine Aminotransferase (ALT/SGPT) 27 U/L (16-63) Alkaline Phosphatase 103 U/L (46-116) Creatine Kinase 103 U/L (39-308) Total Protein 6.3 g/dL (6.4-8.2) Albumin 2.8 g/dL (3.4-5.0) Albumin/Globulin Ratio 0.8 (1.0-1.7) Comment Review of Relevant I have reviewed the following items martell (where applicable) has been applied. Justifications for Admission Other Justification osteomyelitis foot ROGER MORENO MD Nov 22, 2020 11:40
--- NOTE | 2020-11-22 12:18 | PDOC ---
Provider Note Date of Service: DATE: 11/22/20 TIME: 12:16 Provider Note Provider Note Vascular S: Patient seen and examined in room with Dr. Adams. Complains of of left foot pain. O: Awake and alert Vital signs stable, afebrile Left lateral foot wound with some granulation tissue in the base, some areas of necrotic tissue that was sharply debrided bedside. Periwound is intact but has some callus formation. Foot is warm, pink no swelling or erythema. A/P: Left lateral foot wound, status post debridement. Recommend continue wound VAC therapy. Continue antibiotics per infectious disease. Continue to offload foot. Justicifation of Admission Dx: Justifications for Admission: Justification of Admission Dx: Yes Cellulitis: Cellulitis [facility] Nov 22, 2020 12:18
[2020-11-22 15:00] VITALS: BP 102/67
--- NOTE | 2020-11-22 15:06 | NUR ---
Wound/Ostomy Care Wound Type/Assessment: left lateral foot DFU s/p I&D 11/19/[address] Darby. vac not in place upon arrival of team. Periwound is macerated and calloused. Wound is red non-gran tissue with fat and cautery noted. Treatment Recommendations/Plan: Wound vac veraflo placed per vascular surgery. Black foam used, 10ml NS for 5 min every 3 hours, 125 mmHg continuous pressure. Change MWF. Home vac kvng will be placed and pt will follow up in [facility]. Education provided: POC and PU prevention discussed with pt. Pt verbalized understanding of teaching Offloading surface/device: no pressure to mid-foot with ambulation Recommended Referrals/Tests: na Discharge Recommendations for dressings: see above
--- NOTE | 2020-11-22 15:09 | RAD ---
Date: Exam: Fluoroscopic and ultrasound guided peripheral central venous catheter placement. Indication: Consent: The procedure was explained in its entirety to the patient or the patients designated repres entative by a member of the treatment team, including a discussion of the risks, benefits and commonl y accepted alternatives to the procedure, as well as the expected consequences of no therapy whatsoev er. Discussion of the risks included, but was not limited to, those that are most frequent and thos e that are rare but possibly severe or life-threatening, as well as the possibility of unforeseen com plications. Discussion: A timeout procedure was performed. The patient was prepped and draped using maximum sterile techniq ue, including the use of: Current guideline approved cutaneous antisepsis, a large sterile sheet to e stablish a sterile field. 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 1% lidoc stacey was administered for local anesthesia. Ultrasound evaluation demonstrates a patent basilic vein. Reference images were saved in the medical record. The selected vein was accessed using micropuncture technique. A guidewire was advanced centr ally. The PICC line was cut to length, and advanced through a peel-away sheath such that it's tip re sides at the cavoatrial junction. The peel-away sheath a sheath was removed. The catheter was secured in place. The catheter was found to flush and aspirate normally.. Sterile dressings were applied. No immediate complications were identified. Fluoroscopy time: 1.1 minutes Dose area product: 7 Gycm2 Impression: Successful placement of a right upper extremity PICC line Electronically signed by: Isidro Bauman MD (11/22/2020 3:06 PM) [id number]
[2020-11-22] MEDS: NORMAL SALINE IV SCH (18:01)
[2020-11-22] MEDS: DAPTOMYCIN IV SCH (18:01)
[2020-11-22 19:00] VITALS: BP 120/64
[2020-11-22] MEDS: traZODone 50 MG TABLET. PO SCH (22:30)
[2020-11-22] MEDS: TEMAZEPAM 15 MG CAPSULE PO SCH (22:30)
[2020-11-22] MEDS: lamoTRIgine 100 MG TABLET. PO SCH (22:30)
[2020-11-22] MEDS: diphenhydrAMINE HCL 25 MG CAPSULE PO SCH (22:31)
[2020-11-22] MEDS: INSULIN GLARGINE SYRINGE. SQ SCH (22:32)
[2020-11-22 23:00] VITALS: BP 119/64
[2020-11-23] MEDS: PIPERACILLIN/TAZOBACTAM 3.375 GM in IV NORMAL SALINE 50ML 50 ML IV SCH ×4 (00:30→18:44)
[2020-11-23 03:00] VITALS: BP 106/53
[2020-11-23 07:00] VITALS: BP 127/69
[2020-11-23] MEDS: ENOXAPARIN 40 MG/0.4 ML SYRINGE. SQ SCH ×2 (08:46→21:05)
[2020-11-23] MEDS: LACTOBACILLUS RHAMNOSUS GG 1 CAPSULE. PO SCH ×2 (08:46→21:03)
[2020-11-23] MEDS: FAMOTIDINE 20 MG TABLET. PO SCH ×2 (08:46→21:00)
[2020-11-23] MEDS: VENLAFAXINE 50 MG TABLET. PO SCH ×3 (08:46→21:03)
[2020-11-23] MEDS: GABAPENTIN 400 MG CAPSULE. PO SCH ×4 (08:46→21:04)
[2020-11-23] MEDS: MELOXICAM 7.5 MG TABLET PO SCH (08:46)
--- NOTE | 2020-11-23 08:50 | PDOC ---
Infectious Disease Note Subjective Subjective Patient is feeling good ROS ROS no n/v/d/ Vital Sign Vital Signs Vital Signs Date Time Temp Pulse Resp B/P (MAP) Pulse Ox O2 Delivery O2 Flow Rate FiO2 11/23/20 07:00 98.3 87 17 127/69 (88) 92 Room Air 98.3 Physical Exam PHYSICAL EXAM General alert oriented x3 male in no acute distress HEENT normocephalic atraumatic anicteric Neck supple no JVD Heart clear bilaterally Heart S1-S2 Abdomen soft nontender nondistended bowel sounds Extremities left lower extremity wound VAC in place Callus present to the left great toe dry and right plantar aspect dry Right lower extremity no swelling Neuro alert oriented x3 Psych calm cooperative PIV looks clean Labs Lab Laboratory Tests Test 11/22/20 11:39 11/22/20 16:34 11/22/20 20:42 11/23/20 07:09 Glucose (Fingerstick) 161 mg/dL (70-99) 119 mg/dL (70-99) 182 mg/dL (70-99) 166 mg/dL (70-99) Micro GRAM STAIN Final Final NO ORGANISMS SEEN. RBC:MODERATE SQUAMOUS EPI CELL:NONE SEEN PMN (WBCs):FEW ANAEROBIC-AEROBIC CULTURE Preliminary Preliminary No Growth on 11/21/20 at 1113 No Growth on 11/22/20 at 1009 Unless otherwise specified, Testing Performed by: [address] [address] For Inquires, the Physician may contact the Microbiology department at [phone] Objective Assessment Left fifth metatarsal osteomyelitis status post surgery,, also exposure to flooded basement water Diabetes mellitus poorly controlled JORGE L Morbid obesity Plan Plan of Care Continue daptomycin and Zosyn Follow-up labs and cultures Intraoperative cultures pending Continue local wound / VAC care as directed Offload PICC line d/c after that f/u with me in 2 wks FAIZAN SALDIVRA MD Nov 23, 2020 08:50
[2020-11-23] MEDS: INSULIN LISPRO 300 UNITS/3 ML VIAL. SQ SCH ×6 (08:52→18:18)
--- NOTE | 2020-11-23 09:23 | PDOC ---
Provider Note Date of Service: DATE: 11/23/20 TIME: 09:22 Provider Note Provider Note Vascular S: Patient seen and examined in room. Complains of of left foot pain. O: Awake and alert Vital signs stable, afebrile Left foot warm, no swelling. Vac in place and functioning. A/P: Left lateral foot wound, status post debridement. Recommend continue wound VAC therapy. Will reevaluate tomorrow. Continue antibiotics per infectious disease. Continue to offload foot. Justicifation of Admission Dx: Justifications for Admission: Justification of Admission Dx: Yes Cellulitis: Cellulitis [facility] [employer] REPRESENTAT[employer] Nov 23, 2020 09:23
[2020-11-23] MEDS: HYDROmorphone 2 MG/ML VIAL IVP PRN ×3 (09:35→22:42)
[2020-11-23] MEDS: IV NORMAL SALINE 1000ML BAG 1,000 ML IV SCH ×2 (09:36→18:11)
[2020-11-23 11:00] VITALS: BP 105/54
--- NOTE | 2020-11-23 11:22 | NUR ---
SW following. Discussed with RN, pt from home, room air, ada diet. Vascular wants to keep pt today and check wound tomorrow. [facility] coming tomorrow to do the teach. RN notified. SW will continue to follow.
--- NOTE | 2020-11-23 11:35 | PDOC ---
[employer] PROGRESS NOTE Date of Service DOS: DATE: 11/23/20 TIME: 11:19 Chief Complaint Chief Complaint Assessment/Plan IMPRESSION: Acute osteomyelitis of the base of the fifth metatarsal with overlying soft tissue ulcer. Status post excisional debridement 11/19/2020 with vascular surgery diabetes PVD neuropathy of left foot, denies painful symptoms hx Depression, anxiety Obesity Continue wound VAC Wound care consult Follow-up blood and wound cultures Continue IV Dapto and Zosyn BLOOD CULTURES ID CONSULT Emperic iv antibiotics wound care consult home meds Arterial doppler both legs A1C ACCUCHECKS History of Present Illness History of Present Illness Mr Haines is a 40yo M w/ PMHx DM2, polyneuropathy, Morbid obesity who presents with worsening ulcer to his left lateral foot approximately 3 weeks ago, was admitted to [place] for several days, now mri pos osteomyelitis// overlying soft tissue ulcer measuring 1.8 x 1.6 cm, extending to the bone due to .neuropathy of left foot, patient usually denies painful symptoms now has a deep aching pain in foot MRI resulted 11/18 revealed osteomyelitis of the base of the fifth metatarsal Patient states approximately 1 week ago he began to notice malodorous drainage. Patient was admitted to [facility] and was treated for left lower extremity cellulitis with IV vancomycin. 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 No concerns from nursing. Patient seen and examined bedside. On-call to the OR today for with vascular surgery for I&D and wound vac 11/21 No acute events overnight. Patient's postoperative pain is well controlled. Patient seen and examined bedside. Wound VAC suctioning without any leaks or active bleeding. 11/22: Afebrile. Pain is not well controlled, increased PO dilaudid dosing, was on 4mg prior to admit. cultures pending. Tentative plan for PICC in the next 24 hours and home antibiotics. Afebrile. PICC in place. Wound culture with no growth to date. Pain much better controlled today. Plan for discharge next 24 hours with home infusions and every 2 weekly ID follow-up and weekly labs. Vitals/I&O Vitals/I&O: Vital Signs Date Time Temp Pulse Resp B/P (MAP) Pulse Ox O2 Delivery O2 Flow Rate FiO2 11/23/20 10:35 Room Air 11/23/20 07:55 15.0 11/23/20 07:00 98.3 87 17 127/69 (88) 92 98.3 I & O 11/22/20 11/22/20 11/23/20 15:00 23:00 07:00 Intake Total 360 ml 120 ml Output Total 300 ml 700 ml Balance 60 ml -580 ml Physical Exam Physical Exam: General alert oriented x3 male in no acute distress HEENT normocephalic atraumatic anicteric Neck supple no JVD Heart clear bilaterally Heart S1-S2 Abdomen soft nontender nondistended bowel sounds Extremities left lower extremity wound VAC in place Callus present to the left great toe dry and right plantar aspect dry Right lower extremity no swelling Neuro alert oriented x3 Psych calm cooperative PIV looks clean General: Alert, Oriented X3, Cooperative Heart: Normal S1, Normal S2 Abdomen: Normal bowel sounds, Soft, Other (Morbidly obese) Extremities: No edema, Normal pulses, Other (Left foot wound VAC in place without cellulitis or erythema) Skin: Other (Left lateral foot penetrating ulcer with slough tissue at base and hypertrophied callous edges, probes to bone. No drainage or surrounding eryth jhon. ) Labs Labs: Laboratory Tests Test 11/22/20 11:39 11/22/20 16:34 11/22/20 20:42 11/23/20 07:09 Glucose (Fingerstick) 161 mg/dL (70-99) 119 mg/dL (70-99) 182 mg/dL (70-99) 166 mg/dL (70-99) Comment Review of Relevant I have reviewed the following items martell (where applicable) has been applied. Medications: Current Medications Medications (Trade) Dose Ordered Sig/Radha Route PRN Reason Start Time Stop Time Status Last Admin Dose Admin Hydromorphone HCl (Dilaudid) 6 mg PRN Q4HRS PRN PO PAIN 11/22/20 14:00 11/22/20 14:43 Justifications for Admission Other Justification osteomyelitis foot ROGER MORENO MD Nov 23, 2020 11:35
[2020-11-23 15:00] VITALS: BP 111/59
[2020-11-23] MEDS: NORMAL SALINE IV SCH (18:45)
[2020-11-23] MEDS: DAPTOMYCIN IV SCH (18:45)
[2020-11-23 19:00] VITALS: BP 115/61
[2020-11-23] MEDS: TEMAZEPAM 15 MG CAPSULE PO SCH (21:03)
[2020-11-23] MEDS: lamoTRIgine 100 MG TABLET. PO SCH (21:03)
[2020-11-23] MEDS: diphenhydrAMINE HCL 25 MG CAPSULE PO SCH (21:04)
[2020-11-23] MEDS: traZODone 50 MG TABLET. PO SCH (21:04)
[2020-11-23] MEDS: INSULIN GLARGINE SYRINGE. SQ SCH (21:12)
[2020-11-23 23:00] VITALS: BP 119/67
[2020-11-24] MEDS: PIPERACILLIN/TAZOBACTAM 3.375 GM in IV NORMAL SALINE 50ML 50 ML IV SCH ×5 (00:45→18:00)
[2020-11-24] MEDS: IV NORMAL SALINE 1000ML BAG 1,000 ML IV SCH ×2 (03:00→13:00)
[2020-11-24] MEDS: HYDROmorphone 2 MG/ML VIAL IVP PRN ×2 (06:39→09:26)
[2020-11-24 07:00] VITALS: BP 104/61
[2020-11-24] MEDS: INSULIN LISPRO 300 UNITS/3 ML VIAL. SQ SCH ×6 (08:00→17:00)
--- NOTE | 2020-11-24 08:02 | PDOC ---
[employer] PROGRESS NOTE Date of Service DOS: DATE: 11/24/20 TIME: 08:02 Chief Complaint Chief Complaint A/P: Acute osteomyelitis of the base of the fifth metatarsal with overlying soft tissue ulcer. Status post excisional debridement 11/19/2020 with vascular surgery Diabetes PVD Neuropathy of left foot, denies painful symptoms hx Depression, anxiety Obesity Continue wound VAC Wound care consult Follow-up blood and wound cultures Continue IV Dapto and Zosyn BLOOD CULTURES ID CONSULT Emperic iv antibiotics wound care consult home meds Arterial doppler both legs A1C ACCUCHECKS History of Present Illness History of Present Illness Mr Haines is a 40yo M w/ PMHx DM2, polyneuropathy, Morbid obesity who presents with worsening ulcer to his left lateral foot approximately 3 weeks ago, was admitted to [place] for several days, now mri pos osteomyelitis// overlying soft tissue ulcer measuring 1.8 x 1.6 cm, extending to the bone due to .neuropathy of left foot, patient usually denies painful symptoms now has a deep aching pain in foot MRI resulted 11/18 revealed osteomyelitis of the base of the fifth metatarsal Patient states approximately 1 week ago he began to notice malodorous drainage. Patient was admitted to [facility] and was treated for left lower extremity cellulitis with IV vancomycin. 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 No concerns from nursing. Patient seen and examined bedside. On-call to the OR today for with vascular surgery for I&D and wound vac 11/21 No acute events overnight. Patient's postoperative pain is well controlled. Patient seen and examined bedside. Wound VAC suctioning without any leaks or active bleeding. 11/22: Afebrile. Pain is not well controlled, increased PO dilaudid dosing, was on 4mg prior to admit. cultures pending. Tentative plan for PICC in the next 24 hours and home antibiotics. 11/23: Afebrile. PICC in place. Wound culture NGTD. Pain controlled today. Plan for discharge next 24 hours with home infusions and every 2 weekly ID follow-up and weekly labs. Afebrile. Some loose stools overnight sent for C. difficile. Pain is well controlled. Still awaiting wound VAC. He feels incapable of doing any wound care even for 24. At home and his mother is not capable of this either. No chest pain or shortness of breath has offloading shoe. Vitals/I&O Vitals/I&O: Vital Signs Date Time Temp Pulse Resp B/P (MAP) Pulse Ox O2 Delivery O2 Flow Rate FiO2 11/23/20 23:00 97.7 90 18 119/67 (84) 95 97.7 11/23/20 22:42 Room Air 11/23/20 07:55 15.0 I & O 11/23/20 11/23/20 11/24/20 15:00 23:00 07:00 Intake Total 120 ml 720 ml 240 ml Output Total 1400 ml Balance 120 ml -680 ml 240 ml Physical Exam Physical Exam: General alert oriented x3 male in no acute distress HEENT normocephalic atraumatic anicteric Neck supple no JVD Heart clear bilaterally Heart S1-S2 Abdomen soft nontender nondistended bowel sounds Extremities left lower extremity wound VAC in place Callus present to the left great toe dry and right plantar aspect dry Right lower extremity no swelling Neuro alert oriented x3 Psych calm cooperative PIV looks clean General: Alert, Oriented X3, Cooperative Heart: Normal S1, Normal S2 Abdomen: Normal bowel sounds, Soft, Other (Morbidly obese) Extremities: No edema, Normal pulses, Other (Left foot wound VAC in place without cellulitis or erythema) Skin: Other (Left lateral foot penetrating ulcer with slough tissue at base and hypertrophied callous edges, probes to bone. No drainage or surrounding erythema. ) Labs Labs: Laboratory Tests Test 11/23/20 11:05 11/23/20 16:36 11/23/20 20:38 11/24/20 07:21 Glucose (Fingerstick) 191 mg/dL (70-99) 122 mg/dL (70-99) 130 mg/dL (70-99) 161 mg/dL (70-99) Comment Review of Relevant I have reviewed the following items martell (where applicable) has been applied. Justifications for Admission Other Justification osteomyelitis foot ROGER MORENO MD Nov 24, 2020 08:02
[2020-11-24] MEDS: LACTOBACILLUS RHAMNOSUS GG 1 CAPSULE. PO SCH (09:12)
[2020-11-24] MEDS: FAMOTIDINE 20 MG TABLET. PO SCH (09:13)
[2020-11-24] MEDS: MELOXICAM 7.5 MG TABLET PO SCH (09:13)
[2020-11-24] MEDS: VENLAFAXINE 50 MG TABLET. PO SCH ×2 (09:13→14:16)
[2020-11-24] MEDS: GABAPENTIN 400 MG CAPSULE. PO SCH ×3 (09:13→17:41)
[2020-11-24] MEDS: ENOXAPARIN 40 MG/0.4 ML SYRINGE. SQ SCH (09:15)
--- NOTE | 2020-11-24 09:21 | PDOC ---
Infectious Disease Note Subjective Subjective Patient is feeling good ROS ROS no n/v/d/sob Vital Sign Vital Signs Vital Signs Date Time Temp Pulse Resp B/P (MAP) Pulse Ox O2 Delivery O2 Flow Rate FiO2 11/24/20 07:00 98.1 77 17 104/61 (75) 93 Room Air 98.1 11/23/20 07:55 15.0 Physical Exam PHYSICAL EXAM General alert oriented x3 male in no acute distress HEENT normocephalic atraumatic anicteric Neck supple no JVD Heart clear bilaterally Heart S1-S2 Abdomen soft nontender nondistended bowel sounds Extremities left lower extremity wound VAC in place Callus present to the left great toe dry and right plantar aspect dry Right lower extremity no swelling Neuro alert oriented x3 Psych calm cooperative PIV looks clean Labs Lab Laboratory Tests Test 11/23/20 11:05 11/23/20 16:36 11/23/20 20:38 11/24/20 07:21 Glucose (Fingerstick) 191 mg/dL (70-99) 122 mg/dL (70-99) 130 mg/dL (70-99) 161 mg/dL (70-99) Micro GRAM STAIN Final Final NO ORGANISMS SEEN. RBC:MODERATE SQUAMOUS EPI CELL:NONE SEEN PMN (WBCs):FEW ANAEROBIC-AEROBIC CULTURE Preliminary Preliminary No Growth on 11/21/20 at 1113 No Growth on 11/22/20 at 1009 Unless otherwise specified, Testing Performed by: [address] [address] For Inquires, the Physician may contact the Microbiology department at [phone] Objective Assessment Left fifth metatarsal osteomyelitis status post surgery,, also exposure to flooded basement water Diabetes mellitus poorly controlled JORGE L Morbid obesity Plan Plan of Care Continue daptomycin and Zosyn Follow-up labs and cultures Intraoperative cultures pending Continue local wound / VAC care as directed Offload PICC line d/c after that f/u with me in 2 wks FAIZAN SALDIVAR MD Nov 24, 2020 09:21
--- NOTE | 2020-11-24 10:29 | PDOC ---
Provider Note Date of Service: DATE: 11/24/20 TIME: 10:27 Provider Note Provider Note Vascular S: Patient seen and examined in room. Complains of of left foot pain. Awaiting vac approval. O: Awake and alert Vital signs stable, afebrile Left foot warm, no swelling. Vac removed, wound bed clean, minimal fibrin slough , callous periwound. A/P: Left lateral foot wound, status post debridement. Recommend continue wound VAC therapy. If unable to authorize can change to local wound care with aquacel ag. Continue antibiotics per infectious disease. Continue to offload foot. Justicifation of Admission Dx: Justifications for Admission: Justification of Admission Dx: Yes Cellulitis: Cellulitis ALLA VILLELA GIN FEEDER Nov 24, 2020 10:29
[2020-11-24 10:50] LABS: BASO # 0.1 x10^3/uL (0.0-0.2); BASO % 1 % (0-3); EOS # 0.6 x10^3/uL (0.0-0.7); EOS % 10 % (0-3); HEMATOCRIT 32.6 % (39.0-53.0); HEMOGLOBIN 10.9 g/dL (13.0-17.5); LYMPH # 2.1 x10^3/uL (1.0-4.8); LYMPH % 32 % (24-48); MEAN CORPUSCULAR HEMOGLOBIN 30 pg (25-35); MEAN CORPUSCULAR HGB CONC 34 g/dL (31-37); MEAN CORPUSCULAR VOLUME 88 fL (79-100); MONO # 0.4 x10^3/uL (0.0-1.1); MONO % 6 % (0-9); NEUT # 3.4 x10^3/uL (1.8-7.7); NEUT % 51 % (31-73); PLATELET COUNT 290 x10^3/uL (140-400); RED CELL DISTRIBUTION WIDTH 14.9 % (11.5-14.5); WHITE BLOOD COUNT 6.6 x10^3/uL (4.0-11.0)
[2020-11-24 11:00] VITALS: BP 113/60
[2020-11-24 11:08] LABS: ALBUMIN 2.8 g/dL (3.4-5.0); ALBUMIN/GLOBULIN RATIO 0.8 (1.0-1.7); CALCIUM 8.5 mg/dL (8.5-10.1); CREATININE 1.6 mg/dL (0.7-1.3); GFR 47.6; POTASSIUM 4.1 mmol/L (3.5-5.1); TOTAL BILIRUBIN 0.3 mg/dL (0.2-1.0); TOTAL PROTEIN 6.3 g/dL (6.4-8.2)
--- NOTE | 2020-11-24 11:09 | NUR ---
Wound Care [facility] vac application was submitted on Sunday, Abigail is now requiring a PA form to be filled out, request faxed to [facility] this morning. Form completed and submitted to Abigail, and now awaiting approval, informed Sadie Pleitez of delay.
--- NOTE | 2020-11-24 12:38 | NUR ---
ANMOL following. Discussed with RN, RN awaiting confirmation from wound care if pt can discharge today. Per RN, everyone else has signed off for discharge. [facility] waiting for confirmation of discharge and will come do the teach prior to pt leaving. ANMOL sent message to Ebenezer with Wound Care to determine plan for today. ANMOL will continue to follow. Addendum: 11/24/20 at 1401 by GIANCARLO COREA Wound clinic coming to put home wound vac on this afternoon. [place] with [facility] infusion will be out this afternoon to do infusion teach. Discharge plan complete from [facility] standpoint. RN notified.
[2020-11-24 15:00] VITALS: BP 124/55
--- NOTE | 2020-11-24 15:21 | NUR ---
Wound/Ostomy Care Wound Type/Assessment: left lateral foot DFU s/p I&D 11/19/[address] Darby. vac not in place upon arrival of team. Periwound is macerated and calloused. Wound is red non-granular, and with some red granulation tissue with fat and cautery noted. Treatment Recommendations/Plan: Pt approved for home wound vac, placed at this time. 1 piece of juárez foam applied into wound bed, foam tracked over drape up left lateral lower leg. Vac showing strong seal at -125 mmHg continuous suction. Vac changes will take place on Tuesdays and Fridays in the [facility]. Education provided: Wound vac troubleshooting and home usage, WC POC and PU prevention discussed with pt. Pt verbalized understanding of teaching. Offloading surface/device: no pressure to mid-foot with ambulation, off-loading deferred to Vascular Surgery. Recommended Referrals/Tests: N/A Discharge Recommendations for dressings: see treatment plan above. Pt to follow up in [facility] on Sunday at 1245, then Sunday with Dr. Peres at 1230.
[2020-11-24] MEDS ORDERED: HYDR4TAB PO (15:58)
[2020-11-24] MEDS ORDERED: DAPT350V IV (15:58)
[2020-11-24] MEDS ORDERED: PIPE3.3734 IV (15:58)
--- NOTE | 2020-11-24 16:05 | SNU/HH DC ---
DISCHARGE WITH HOME HEALTH DISCHARGE INFORMATION: Discharge Date: Nov 24, 2020 Final Diagnosis: Osteomyelitis of left lateral foot Condition on Discharge: Stable CODE STATUS: Code Status: Full HOME HEALTH: Face to Face: I certify this patient is under my care and that I, or a nurse practitioner or physician's senior assistant manager working with me, had a face to face encounter that meets the physician face to face encounter requirements with this patient on 11/24/2020. Medical Complications: DM, Other (Left foot lateral wound, wound vac) Long Term For: Admin/Educate Injections, Assess & Educate Safety, Diabetic Care, IV Infusion Therapy, Pain Management, Wound Care, Wound Vac RN For Eval/Treatment: Yes Physical Therapy For: Evalulation/Treatment Occupational Therapy For: Evaluation/Treatment Pt Meets Homebound Status: Unsteady balance w/ amb,, Limited distance walking POST DISCHARGE ORDERS: Activity Instructions for Disc: Resume previous activity Weight Bearing Status after Di: Partial weight bearing (offload lateral left foot) DIET AFTER DISCHARGE: ADA Wound/Incision Care: Change dressing, Reinforce dressing PRN CHECKS AFTER DISCHARGE: Checks after discharge: Check blood press - daily, Check blood sugar, ac/hs, Check your Temp as needed FOLLOW-UP: Additional Instructions: Daptomycin 740 mg IV daily Zosyn 3.375 g IV every 6 hours Weekly CBC, BUN, creatinine, ESR, CPK fax results to [phone] Outpatient wound care follow-up on 11/26/2020 Follow-up with Dr. Castro Issa in 2 weeks call [phone] to schedule Follow up appointment Dr. Darby 12/16/2020 12:[address] [place] [address], 3rd floor, pod f [facility] [phone] TREATMENT/EQUIPMENT ORDERS: Adaptive Equipment Issued: None Infusion Equipment, home use: PICC Line CERTIFICATION STATEMENT: Certification Statement: Certification Statement: Based on the above finding, I certify that this patient is confined to the home and needs intermittent alf care, physical therapy and/or speech therapy, or continues to need occupational therapy.~ This patient is under my care, and I have initiated the establishment of the plan of care.~ This patient will be followed by myself or a community physician who will periodically review the plan of care. Home Meds Active Scripts Piperacillin Sodium/Tazobactam (PIPERACIL-TAZOBACT 3.375 GM VL) 3.375 Gm Vial, 3.375 GM IV Q6HRS for Osteomyelitis for 28 Days, #112 EACH Prov:ROGER MORENO MD 11/24/20 Daptomycin (Daptomycin) 350 Mg Vial, 740 MG IV DAILY for Osteomyelitis left foot for 28 Days, #60 EACH Prov:ROGER MORENO MD 11/24/20 Hydromorphone Hcl (HYDROMORPHONE HCL) 4 Mg Tablet, 1 TAB PO PRN Q6HRS PRN for unk for 6 Days, #24 TAB Prov:ROGER MORENO MD 11/24/20 Reported Medications Testosterone Cypionate (TESTOSTERONE CYPIONATE) 200 Mg/1 Ml Vial, 1 ML IM WEEKLY for UNK, #10 ML 1 Refill 11/18/20 Metformin Hcl (METFORMIN HCL ER) 750 Mg Tab.er.24h, 1 TAB PO DAILY for DM 11/18/20 Ondansetron (ONDANSETRON ODT) 8 Mg Tab.rapdis, 8 MG PO PRN Q8HRS PRN for NAUSEA 11/18/20 Venlafaxine Hcl (VENLAFAXINE HCL ER) 150 Mg Cap.er.24h, 1 CAP PO QHS for DEPRESSION 11/18/20 Lamotrigine (LAMOTRIGINE) 200 Mg Tablet, 300 TAB PO QHS for depressive disorder 11/18/20 Insulin Detemir (Levemir Flextouch) 100 Unit/1 Ml Insuln.pen, 30 UNITS SQ QHS for DM 11/18/20 Insulin Aspart (Niacinamide) (Fiasp 100 Unit/ml Flextouch) 100 Unit/1 Ml Insuln.pen, 10 UNITS SQ TIDWMEALS for DM 11/18/20 Empagliflozin (Jardiance) 25 Mg Tablet, 1 TAB PO DAILY for UNK 11/18/20 Potassium Chloride (K-Tab ER) 20 Meq Tablet.er, 20 MEQ PO DAILY for SUPPLEMENT 11/18/20 Furosemide (FUROSEMIDE) 80 Mg Tablet, 1 TAB PO PRN DAILY PRN for unk 11/18/20 Temazepam (TEMAZEPAM) 30 Mg Capsule, 1 CAP PO QHS for unk 11/18/20 Gabapentin (GABAPENTIN) 800 Mg Tablet, 800 MG PO QID for NEUROGENIC PAIN, TAB 2/4/20 Omeprazole (OMEPRAZOLE) 40 Mg Capsule.dr, 40 MG PO BID for gerd, CAP 07/22/19 Discontinued Reported Medications Doxycycline Hyclate (DOXYCYCLINE HYCLATE) 100 Mg Capsule, 1 CAP PO BID for WOUND for 10 Days 11/18/20 ROGER MORENO MD Nov 24, 2020 16:05
--- NOTE | 2020-11-24 16:12 | PDOC3 ---
Discharge Summary Visit Information Date of Admission: Nov 18, 2020 Date of Discharge: Nov 24, 2020 Admitting Diagnosis: Osteomyelitis left foot Final Diagnosis Osteomyelitis left foot Brief Hospital Course Allergies Allergies Coded Allergies Type Severity Reaction Last Updated Verified No Known Drug Allergies 11/18/20 No Vital Signs Vital Signs Date Time Temp Pulse Resp B/P (MAP) Pulse Ox O2 Delivery O2 Flow Rate FiO2 11/24/20 11:20 Room Air 11/24/20 11:00 98.1 71 17 113/60 (77) 94 98.1 11/23/20 07:55 15.0 Lab Results Laboratory Tests Test 11/22/20 16:34 11/22/20 20:42 11/23/20 07:09 11/23/20 11:05 Glucose (Fingerstick) 119 mg/dL (70-99) 182 mg/dL (70-99) 166 mg/dL (70-99) 191 mg/dL (70-99) Test 11/23/20 16:36 11/23/20 20:38 11/24/20 07:21 11/24/20 10:15 Glucose (Fingerstick) 122 mg/dL (70-99) 130 mg/dL (70-99) 161 mg/dL (70-99) White Blood Count 6.6 x10^3/uL (4.0-11.0) Red Blood Count 3.70 x10^6/uL (4.30-5.70) Hemoglobin 10.9 g/dL (13.0-17.5) Hematocrit 32.6 % (39.0-53.0) Mean Corpuscular Volume 88 fL (79-100) Mean Corpuscular Hemoglobin 30 pg (25-35) Mean Corpuscular Hemoglobin Concent 34 g/dL (31-37) Red Cell Distribution Width 14.9 % (11.5-14.5) Platelet Count 290 x10^3/uL (140-400) Neutrophils (%) (Auto) 51 % (31-73) Lymphocytes (%) (Auto) 32 % (24-48) Monocytes (%) (Auto) 6 % (0-9) Eosinophils (%) (Auto) 10 % (0-3) Basophils (%) (Auto) 1 % (0-3) Neutrophils # (Auto) 3.4 x10^3/uL (1.8-7.7) Lymphocytes # (Auto) 2.1 x10^3/uL (1.0-4.8) Monocytes # (Auto) 0.4 x10^3/uL (0.0-1.1) Eosinophils # (Auto) 0.6 x10^3/uL (0.0-0.7) Basophils # (Auto) 0.1 x10^3/uL (0.0-0.2) Sodium Level 142 mmol/L (136-145) Potassium Level 4.1 mmol/L (3.5-5.1) Chloride Level 109 mmol/L (98-107) Carbon Dioxide Level 24 mmol/L (21-32) Anion Gap 9 (6-14) Blood Urea Nitrogen 16 mg/dL (8-26) Creatinine 1.6 mg/dL (0.7-1.3) Estimated GFR (Cockcroft-Gault) 47.6 BUN/Creatinine Ratio 10 (6-20) Glucose Level 188 mg/dL (70-99) Calcium Level 8.5 mg/dL (8.5-10.1) Total Bilirubin 0.3 mg/dL (0.2-1.0) Aspartate Amino Transf (AST/SGOT) 20 U/L (15-37) Alanine Aminotransferase (ALT/SGPT) 21 U/L (16-63) Alkaline Phosphatase 91 U/L (46-116) Creatine Kinase 97 U/L (39-308) Total Protein 6.3 g/dL (6.4-8.2) Albumin 2.8 g/dL (3.4-5.0) Albumin/Globulin Ratio 0.8 (1.0-1.7) Test 11/24/20 11:38 Glucose (Fingerstick) 147 mg/dL (70-99) Laboratory Tests Test 11/23/20 16:36 11/23/20 20:38 11/24/20 07:21 11/24/20 10:15 Glucose (Fingerstick) 122 mg/dL (70-99) 130 mg/dL (70-99) 161 mg/dL (70-99) White Blood Count 6.6 x10^3/uL (4.0-11.0) Red Blood Count 3.70 x10^6/uL (4.30-5.70) Hemoglobin 10.9 g/dL (13.0-17.5) Hematocrit 32.6 % (39.0-53.0) Mean Corpuscular Volume 88 fL (79-100) Mean Corpuscular Hemoglobin 30 pg (25-35) Mean Corpuscular Hemoglobin Concent 34 g/dL (31-37) Red Cell Distribution Width 14.9 % (11.5-14.5) Platelet Count 290 x10^3/uL (140-400) Neutrophils (%) (Auto) 51 % (31-73) Lymphocytes (%) (Auto) 32 % (24-48) Monocytes (%) (Auto) 6 % (0-9) Eosinophils (%) (Auto) 10 % (0-3) Basophils (%) (Auto) 1 % (0-3) Neutrophils # (Auto) 3.4 x10^3/uL (1.8-7.7) Lymphocytes # (Auto) 2.1 x10^3/uL (1.0-4.8) Monocytes # (Auto) 0.4 x10^3/uL (0.0-1.1) Eosinophils # (Auto) 0.6 x10^3/uL (0.0-0.7) Basophils # (Auto) 0.1 x10^3/uL (0.0-0.2) Sodium Level 142 mmol/L (136-145) Potassium Level 4.1 mmol/L (3.5-5.1) Chloride Level 109 mmol/L (98-107) Carbon Dioxide Level 24 mmol/L (21-32) Anion Gap 9 (6-14) Blood Urea Nitrogen 16 mg/dL (8-26) Creatinine 1.6 mg/dL (0.7-1.3) Estimated GFR (Cockcroft-Gault) 47.6 BUN/Creatinine Ratio 10 (6-20) Glucose Level 188 mg/dL (70-99) Calcium Level 8.5 mg/dL (8.5-10.1) Total Bilirubin 0.3 mg/dL (0.2-1.0) Aspartate Amino Transf (AST/SGOT) 20 U/L (15-37) Alanine Aminotransferase (ALT/SGPT) 21 U/L (16-63) Alkaline Phosphatase 91 U/L (46-116) Creatine Kinase 97 U/L (39-308) Total Protein 6.3 g/dL (6.4-8.2) Albumin 2.8 g/dL (3.4-5.0) Albumin/Globulin Ratio 0.8 (1.0-1.7) Test 11/24/20 11:38 Glucose (Fingerstick) 147 mg/dL (70-99) Brief Hospital Course Mr Haines is a 40yo M w/ PMHx DM2, polyneuropathy, Morbid obesity who presents with worsening ulcer to his left lateral foot approximately 3 weeks ago, was admitted to [place] for several days, now mri pos osteomyelitis// overlying soft tissue ulcer measuring 1.8 x 1.6 cm, extending to the bone due to .neuropathy of left foot, patient usually denies painful symptoms now has a deep aching pain in foot MRI resulted 11/18 revealed osteomyelitis of the base of the fifth metatarsal Patient states approximately 1 week ago he began to notice malodorous drainage. Patient was admitted to [facility] and was treated for left lower extremity cellulitis with IV vancomycin. 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 No concerns from nursing. Patient seen and examined bedside. On-call to the OR today for with vascular surgery for I&D and wound vac 11/21 No acute events overnight. Patient's postoperative pain is well controlled. Patient seen and examined bedside. Wound VAC suctioning without any leaks or active bleeding. 11/22: Afebrile. Pain is not well controlled, increased PO dilaudid dosing, was on 4mg prior to admit. cultures pending. Tentative plan for PICC in the next 24 hours and home antibiotics. 11/23: Afebrile. PICC in place. Wound culture NGTD. Pain controlled today. Plan for discharge next 24 hours with home infusions and every 2 weekly ID follow-up and weekly labs. Afebrile. Pain is well controlled. Home wound VAC applied. Going home and his mother is not capable of this either. No chest pain or shortness of breath has offloading shoe. Consults: ID, vascular surgery, wound care. Problem list: Acute osteomyelitis of the base of the fifth metatarsal with overlying soft tissue ulcer. Status post excisional debridement 11/19/2020 with vascular surgery Diabetes PVD Neuropathy of left foot, denies painful symptoms hx Depression, anxiety Obesity Plan: Daptomycin 740 mg IV daily Zosyn 3.375 g IV every 6 hours Weekly CBC, BUN, creatinine, ESR, CPK fax results to [phone] Follow-up with Dr. Castro Issa in 2 weeks call [phone] to schedule Outpatient wound care follow-up on 11/26/[address] Darby 12/16/2020 12:45 [address] [facility] [address], 3rd floor, pod f [facility] [phone] Discharge Information Condition at Discharge: Improved Follow Up: Weeks (1) Disposition/Orders: D/C to Home w/ HH Scheduled Daptomycin (Daptomycin) 350 Mg Vial, 740 MG IV DAILY for Osteomyelitis left foot for 28 Days, #60 Prescribed by: ROGER MORENO MD on 11/24/20 1558 Empagliflozin (Jardiance) 25 Mg Tablet, 1 TAB PO DAILY for UNK, (Reported) Entered as Reported by: MAYNOR MCKINNEY on 11/18/202052 Last Taken: Unknown Dose on 11/18/20 Last Action: Reviewed on 11/18/202056 by MAYNOR MCKINNEY Gabapentin (Gabapentin) 800 Mg Tablet, 800 MG PO QID for NEUROGENIC PAIN, (Reported) Entered as Reported by: RAMYA LORD on 07/22/19 1442 Last Action: Reviewed on 11/18/202056 by MAYNOR MCKINNEY Insulin Aspart (Niacinamide) (Fiasp 100 Unit/ml Flextouch) 100 Unit/1 Ml Insuln.pen, 10 UNITS SQ TIDWMEALS for DM, (Reported) Entered as Reported by: MAYNOR MCKINNEY on 11/18/202052 Last Taken: Unknown Dose on 11/18/20 Last Action: HELD on 11/19/20 1211 by RICHARD FITZGERALD MD Insulin Detemir (Levemir Flextouch) 100 Unit/1 Ml Insuln.pen, 30 UNITS SQ QHS for DM, (Reported) Entered as Reported by: MAYNOR MCKINNEY on 11/18/202052 Last Taken: Unknown Dose on 11/17/20 Last Action: HELD on 11/19/201210 by RICHARD FITZGERALD MD Lamotrigine (Lamotrigine) 200 Mg Tablet, 300 TAB PO QHS for depressive disorder, (Reported) Entered as Reported by: MAYNOR MCKINNEY on 11/18/202052 Last Taken: Unknown Dose on 11/17/20 Last Action: Converted on 11/19/201210 by RICHARD FITZGERALD MD Metformin Hcl (Metformin Hcl Er) 750 Mg Tab.er.24h, 1 TAB PO DAILY for DM, (Reported) Entered as Reported by: MAYNOR MCKINNEY on 11/18/202052 Last Taken: Unknown Dose on 11/18/20 Last Action: HELD on 11/19/201210 by RICHARD FITZGERALD MD Omeprazole (Omeprazole) 40 Mg Capsule.dr, 40 MG PO BID for gerd, (Reported) Entered as Reported by: RAMYA LORD on 07/22/19 1442 Last Action: Reviewed on 11/18/202056 by MAYNOR MCKINNEY Piperacillin Sodium/Tazobactam (Piperacil-Tazobact 3.375 Gm Vl) 3.375 Gm Vial, 3.375 GM IV Q6HRS for Osteomyelitis for 28 Days, #112 Prescribed by: ROGER MORENO MD on 11/24/20 1558 Potassium Chloride (K-Tab ER) 20 Meq Tablet.er, 20 MEQ PO DAILY for SUPPLEMENT, (Reported) Entered as Reported by: MAYNOR MCKINNEY on 11/18/202052 Last Taken: Unknown Dose on 11/18/20 Last Action: Reviewed on 11/18/202056 by MAYNOR MCKINNEY Temazepam (Temazepam) 30 Mg Capsule, 1 CAP PO QHS for unk, (Reported) Entered as Reported by: MAYNOR MCKINNEY on 11/18/202052 Last Taken: Unknown Dose on 11/17/20 Last Action: Continued on 11/19/201210 by RICHARD FITZGERALD MD Testosterone Cypionate (Testosterone Cypionate) 200 Mg/1 Ml Vial, 1 ML IM WEEKLY for UNK, #10 Ref 1 (Reported) Entered as Reported by: MAYNOR MCKINNEY on 11/18/202058 Last Taken: Unknown Dose on Unknown Date & Time Last Action: Reviewed on 11/18/202058 by MAYNOR MCKINNEY Venlafaxine Hcl (Venlafaxine Hcl Er) 150 Mg Cap.er.24h, 1 CAP PO QHS for DEPRESSION, (Reported) Entered as Reported by: MAYNOR MCKINNEY on 11/18/202052 Last Taken: Unknown Dose on 11/17/20 Last Action: Converted on 11/19/201210 by RICHARD FITZGERALD MD Scheduled PRN Furosemide (Furosemide) 80 Mg Tablet, 1 TAB PO PRN DAILY PRN for unk, (Reported) Entered as Reported by: MAYNOR MCKINNEY on 11/18/202052 Last Taken: Unknown Dose on Unknown Date & Time Last Action: Reviewed on 11/18/202056 by MAYNOR MCKINNEY Hydromorphone Hcl (Hydromorphone Hcl) 4 Mg Tablet, 1 TAB PO PRN Q6HRS PRN for unk for 6 Days, #24 Prescribed by: ROGER MORENO MD on 11/24/20 6082 Ondansetron (Ondansetron Odt) 8 Mg Tab.rapdis, 8 MG PO PRN Q8HRS PRN for NAUSEA, (Reported) Entered as Reported by: MAYNOR MCKINNEY on 11/18/202052 Last Taken: Unknown Dose on Unknown Date & Time Last Action: Reviewed on 11/18/202056 by MAYNOR MCKINNEY Discontinued Medications Doxycycline Hyclate (Doxycycline Hyclate) 100 Mg Capsule, 1 CAP PO BID for WOUND for 10 Days, (Reported) Entered as Reported by: MAYNOR MCKINNEY on 11/18/202052 Last Taken: Unknown Dose on 11/18/20 Last Action: HELD on 11/19/201210 by RICHARD FITZGERALD MD Justicifation of Admission Dx: Justifications for Admission: Justification of Admission Dx: Yes Cellulitis: Cellulitis ROGER MORENO MD Nov 24, 2020 16:12
[2020-11-24] MEDS: DAPTOMYCIN IV SCH (17:46)
[2020-11-24] MEDS: NORMAL SALINE IV SCH (17:46)
--- NOTE | 2020-11-24 22:26 | NUR ---
Pt. left the floor at 2034 by wheelchair. This RN and [employer] CLERK took patient down to his car along with his belongings. Pt. was able to get into his care on his own without any difficulty.
== END 2020-11-24 20:35 | disposition home or self-care (01) | DRG 629 ==
LOC: 4 NORTH 15:10
PROVIDERS: ADMIT Family Medicine; ATTEND Family Medicine
PROC: 0QBP0ZZ Excision of Left Metatarsal, Open Approach (ICD-10-PCS; principal; 2020-11-19 13:30)
PROC: 02HV33Z Insertion of Infusion Device into Superior Vena Cava, Percutaneous Approach (ICD-10-PCS; 2020-11-22)
PROC: B5181ZA Fluoroscopy of Superior Vena Cava using Low Osmolar Contrast, Guidance (ICD-10-PCS; 2020-11-22)
DX: E11.69 Type 2 diabetes mellitus with other specified complication (principal); M86.172 Other acute osteomyelitis, left ankle and foot; E11.41 Type 2 diabetes mellitus with diabetic mononeuropathy; F32.9 Major depressive disorder, single episode, unspecified; F41.9 Anxiety disorder, unspecified; E11.42 Type 2 diabetes mellitus with diabetic polyneuropathy; E11.51 Type 2 diabetes mellitus with diabetic peripheral angiopathy without gangrene; E11.621 Type 2 diabetes mellitus with foot ulcer; E11.628 Type 2 diabetes mellitus with other skin complications; E66.01 Morbid (severe) obesity due to excess calories; G47.33 Obstructive sleep apnea (adult) (pediatric); I10 Essential (primary) hypertension; L97.529 Non-pressure chronic ulcer of other part of left foot with unspecified severity; N17.9 Acute kidney failure, unspecified; Z82.49 Family history of ischemic heart disease and other diseases of the circulatory system
CPT/HCPCS: 36415; 36573; 77001; 80048; 80053; 82550; 82962; 83036; 83735; 85007; 85025; 85651; 86140; 87071; 87075; 87176; 93923; A4364; A4930; A6211; A6402; C1751; C1892; J0878; J1170; J1200; J1650; J1815; J2405; J2543; J2704; J3010; J3490; J7030; G0378; Q0163

== ENCOUNTER → 2020-11-18 | Outpatient (CLI) | payer OTHER ==
[~2020-11-18] MED LIST changes: +CHOL10004 PO; +DAPT350V IV; +DIPH25TA24 PO; +DOXY100C2 PO; +EMPA25TA PO; +FURO80TA3 PO; +GADOTERATE 7.5 MMOL/15ML VIAL. IVP ONE; +HYDR2TAB31 PO; +HYDR4TAB PO; +INSU100I27 SQ; +INSU100I39 SQ; -IOHEXOL 180 MG/ML 10 ML VIAL. ONE; +LACT1CAP19 PO; +LAMO200T6 PO; +METF750T39 PO; -NABU500T PO; +NABU500T11 PO; -OMEP40CA45 PO; +OMEP40CA7 PO; +ONDA8TAB15 PO; +PANT40TA77 PO; +PIPE3.3734 IV; +POTA20TA84 PO; +QUET50TA5 PO; +RIVA15TA PO; +TEMA30CA PO; +TEST200V3 IM; +VENL150C6 PO; +VENL50TA PO; -methylPREDNISolone ACETATE 40 MG/ML VIAL. ONE; -methylPREDNISolone ACETATE 80 MG/ML VIAL. ONE
--- NOTE | 2020-11-18 15:21 | RAD ---
EXAMINATION: MRI LEFT LOWER EXTREMITY W/WO INDICATIONS: Nonhealing diabetic ulcer on left foot, proximal fifth metatarsal.. TECHNIQUE: Multiplanar multisequence MRI of left forefoot performed before and after administration of 30 mL clariscan contrast. COMPARISON: None. FINDINGS: There is confluent low T1 marrow signal and edema at the lateral base of the fifth metatarsal with mi ld periosteal reaction, consistent with acute osteomyelitis. There is reactive marrow edema throughou t the rest of the fifth metatarsal shaft without T1 signal abnormality. There is an overlying soft ti ssue ulcer measuring 1.8 x 1.6 cm, extending to the bone. There is subcutaneous edema along the dorsu m of the foot. No drainable fluid collection. Mild diffuse muscular edema. Marrow signal elsewhere is normal. Articular cartilage is intact. The lateral collateral ligamentous complex is intact. There is probable old sprain of the deep deltoid ligament. Superficial deltoid lig ament is intact. Probable small longitudinal split tear of the Proteus brevis tendon. Remaining tendo ns are intact. There is a small amount of fluid along the peroneal tendons and posterior tibial tendo n. IMPRESSION: Acute osteomyelitis of the base of the fifth metatarsal with overlying soft tissue ulcer. Electronically signed by: Judy Ariza MD (11/18/2020 3:18 PM) [id number]
== END ==
LOC: MRI 12:25
PROVIDERS: ATTEND Emergency Medicine Undersea and Hyperbaric Medicine
DX: M86.172 Other acute osteomyelitis, left ankle and foot (principal); E11.621 Type 2 diabetes mellitus with foot ulcer; L97.423 Non-pressure chronic ulcer of left heel and midfoot with necrosis of muscle
CPT/HCPCS: 73720; A9575

== ENCOUNTER 2020-12-22 12:39 | Emergency (ER) | payer OTHER ==
[~2020-12-22] VITALS: Ht 200.7 cm; Wt 170.0 kg
[~2020-12-22 12:39] MED LIST changes: +CHOL10004 PO; +DAPT350V IV; +DIPH25TA24 PO; +DOXY100C2 PO; +EMPA25TA PO; +FURO80TA3 PO; +HYDR2TAB31 PO; +HYDR4TAB PO; +INSU100I27 SQ; +INSU100I39 SQ; +LACT1CAP19 PO; +LAMO200T6 PO; +METF750T39 PO; +ONDA8TAB15 PO; +PANT40TA77 PO; +PIPE3.3734 IV; +POTA20TA84 PO; +QUET50TA5 PO; +RIVA15TA PO; +TEMA30CA PO; +TEST200V3 IM; +VENL150C6 PO; +VENL50TA PO
--- NOTE | 2020-12-22 13:55 | PHYS DOC ---
Past Medical History Smoking Status: Never Smoker General Adult EDM: Chief Complaint: OTHER COMPLAINTS HPI: HPI: Patient is a 40 year old male with history of diabetes type 2 who presents to the ED today requesting his PICC line to be checked and dressing to stop [place] telling her this changed. Patient states the dressing is peeling off. He is also complaining of a sore throat since yesterday. He is currently on IV antibiotics for osteomyelitis on his right heel. He is on daptomycin and Zosyn. Review of Systems: Review of Systems: Constitutional: Denies fever or chills. [] Eyes: Denies change in visual acuity. [] HENT: Denies nasal congestion or sore throat. [] Respiratory: Denies cough or shortness of breath. [] Cardiovascular: Denies chest pain or edema. [] GI: Denies abdominal pain, nausea, vomiting, bloody stools or diarrhea. [] : Denies dysuria. [] Musculoskeletal: Denies back pain or joint pain. [] Integument: Reports wound on the right heel, reports PICC line dressing peeling off Neurologic: Denies headache, focal weakness or sensory changes. [] Psychiatric: Denies depression or anxiety. [] Heart Score: C/O Chest Pain: N/A Risk Factors: Risk Factors: DM, Current or recent (<one month) smoker, HTN, HLP, family history of CAD, obesity. Risk Scores: Score 0 - 3: 2.5% MACE over next 6 weeks - Discharge Home Score 4 - 6: 20.3% MACE over next 6 weeks - Admit for Clinical Observation Score 7 - 10: 72.7% MACE over next 6 weeks - Early Invasive Strategies Allergies: Allergies: Allergies Coded Allergies Type Severity Reaction Last Updated Verified No Known Drug Allergies 11/18/20 No Physical Exam: PE: Constitutional: Well developed, well nourished, no acute distress, non-toxic appearance. [] HENT: Normocephalic, atraumatic, bilateral external ears normal, oropharynx moist, no oral exudates, nose normal. [] Eyes: PERRLA, EOMI, conjunctiva normal, no discharge. [] Neck: Normal range of motion, no tenderness, supple, no stridor. [] Cardiovascular:Heart rate regular rhythm, no murmur [] Lungs & Thorax: Bilateral breath sounds clear to auscultation [] Abdomen: Bowel sounds normal, soft, no tenderness, no masses, no pulsatile masses. [] Skin: Right heel was not examined per patient request Patient has a PICC line in the right upper extremity, there is no signs of infection around the PICC line. Dressing appears to be peeling off. Back: No tenderness, no CVA tenderness. [] Extremities: No tenderness, no cyanosis, no clubbing, ROM intact, no edema. [] Neurologic: Alert and oriented X 3, normal motor function, normal sensory function, no focal deficits noted. [] Psychologic: Affect normal, judgement normal, mood normal. [] EKG: EKG: [] Radiology/Procedures: Radiology/Procedures: [] Course & Med Decision Making: Course & Med Decision Making Pertinent Labs and Imaging studies reviewed. (See chart for details) This is a 40-year-old male patient presenting to the ED today requesting look at his PICC line dressing. It has been peeling off. No signs of infection around the PICC line. Dressing was changed in the ED. Is on antibiotics for osteomyelitis on the right heel. He was also complaining of sore throat. Follow-up with PCP and infectious disease next week Osbaldo Disclaimer: Osbaldo Disclaimer: This electronic medical record was generated, in whole or in part, using a voice recognition dictation system. Departure Departure Impression: Primary Impression: Peripherally inserted central catheter (PICC) in place Additional Impression: Pharyngitis, acute Qualified Codes: J02.9 - Acute pharyngitis, unspecified Disposition: HOME / SELF CARE / HOMELESS Condition: STABLE Referrals: SIRIA HOUGH (PCP) follow up next week with your doctor Patient Instructions: PICC Home Guide Additional Instructions: Please keep your PICC line site clean. Continue antibiotics. Follow-up with your doctor in the course of this week or next week KASSANDRA MARROQUIN [employer]DER Dec 22, 2020 13:55
[2020-12-22 14:27] VITALS: BP 126/86
== END 2020-12-22 15:54 | disposition home or self-care (01) ==
LOC: ER 12:39
DX: J02.9 Acute pharyngitis, unspecified (principal); Z45.02 Encounter for adjustment and management of automatic implantable cardiac defibrillator; E11.9 Type 2 diabetes mellitus without complications
CPT/HCPCS: 87070; 87880; 99283

== ENCOUNTER → 2021-02-01 | Outpatient (CLI) | payer OTHER ==
[~2021-02-01] MED LIST changes: -DOXY100C2 PO; +DOXY100C3 PO; +HYDR-2761 PO; +HYDR-2769 PO
[2021-02-01 13:00] LABS: BASO # 0.1 x10^3/uL (0.0-0.2); BASO % 1 % (0-3); EOS # 0.4 x10^3/uL (0.0-0.7); EOS % 3 % (0-3); HEMATOCRIT 48.6 % (39.0-53.0); LYMPH # 3.1 x10^3/uL (1.0-4.8); LYMPH % 28 % (24-48); MEAN CORPUSCULAR HEMOGLOBIN 28 pg (25-35); MEAN CORPUSCULAR HGB CONC 33 g/dL (31-37); MEAN CORPUSCULAR VOLUME 84 fL (79-100); MONO # 0.9 x10^3/uL (0.0-1.1); MONO % 8 % (0-9); NEUT # 6.7 x10^3/uL (1.8-7.7); NEUT % 60 % (31-73); PLATELET COUNT 356 x10^3/uL (140-400); RED BLOOD COUNT 5.78 x10^6/uL (4.30-5.70); WHITE BLOOD COUNT 11.2 x10^3/uL (4.0-11.0)
[2021-02-01 13:24] LABS: ALBUMIN 3.7 g/dL (3.4-5.0); C-REACTIVE PROTEIN 17.3 mg/L (0-3.3); CALCIUM 9.3 mg/dL (8.5-10.1); CREATININE 1.8 mg/dL (0.7-1.3); GFR 41.6; POTASSIUM 4.6 mmol/L (3.5-5.1); TOTAL BILIRUBIN 0.2 mg/dL (0.2-1.0); TOTAL PROTEIN 7.5 g/dL (6.4-8.2)
== END ==
LOC: LAB 12:33
PROVIDERS: ATTEND Emergency Medicine Undersea and Hyperbaric Medicine
DX: E11.621 Type 2 diabetes mellitus with foot ulcer (principal); L97.424 Non-pressure chronic ulcer of left heel and midfoot with necrosis of bone; L97.521 Non-pressure chronic ulcer of other part of left foot limited to breakdown of skin
CPT/HCPCS: 36415; 80053; 85025; 85651; 86140